=== PATIENT | male | born 1955 | race Caucasian/White ===

== ENCOUNTER → 2016-05-02 | Outpatient (CLI) | payer OTHER ==
[~2016-05-02] MED LIST: ASPI81TA28 PO; CRS10 PO; LOSA1TAB38 PO; QUIN20TA PO
--- NOTE | 2016-05-02 15:58 | DIAGNOSTIC IMAGING REPORT ---
AP PELVIS AND RIGHT HIP 2 VIEWS CLINICAL HISTORY: Right hip pain COMPARISON: None DISCUSSION: There are mild to moderate osteoarthritic changes involving the right hip. There is joint space narrowing and osteophyte formation. There are no erosive or destructive changes. There are no acute fractures. Mild osteophytic changes are also present within the left hip. IMPRESSION: 1. No acute fractures identified 2. Mild to moderate osteoarthritic changes involving the right hip. Electronically signed by: Anthony Page M.D. 05/02/2016 3:56 PM Dictated Date/Time: 05/02/2016 3:55 PM
== END | disposition home or self-care (01) ==
LOC: C.RDSM 14:08
PROVIDERS: ATTEND Physical Medicine & Rehabilitation Sports Medicine
DX: M16.11 Unilateral primary osteoarthritis, right hip (principal)

== ENCOUNTER → 2016-07-26 | Outpatient (CLI) | payer OTHER ==
[~2016-07-26] MED LIST changes: +QUIN1TAB4 PO; -QUIN20TA PO
[2016-07-26 09:36] LABS: BASO % 0.9 %; BASO ABS # 0.08 K/uL (0-0.2); COMPLETE YES; EOS % 5.7 %; IG% 0.3 %; LYMPH % 14.4 %; LYMPH ABS # 1.29 K/uL (1.2-3.4); MEAN CELL VOLUME 92.1 fL (80-100); MEAN CORPUSCULAR HEMOGLOBIN 31.3 pg (25-34); MEAN PLATELET VOLUME 11.2 fL (7.4-10.4); MONO % 12.2 %; NEUT % 66.5 %; PLATELET COUNT 162 K/uL (130-400); RED BLOOD COUNT 5.21 M/uL (4.7-6.1); WHITE BLOOD COUNT 8.95 K/uL (4.8-10.8)
[2016-07-26 09:50] LABS: ALT/SGPT 59 U/L (12-78); AST/SGOT 36 U/L (15-37); BLOOD UREA NITROGEN 35 mg/dl (7-18); BUN/CREATININE RATIO 19.4 (10-20); CARBON DIOXIDE 30 mmol/L (21-32); CHLORIDE 108 mmol/L (98-107); CHOLESTEROL 156 mg/dl (0-200); GLUCOSE 109 mg/dl (70-99); POTASSIUM 3.9 mmol/L (3.5-5.1); SODIUM 144 mmol/L (136-145); TRIGLYCERIDES 322 mg/dl (0-150); VERY LOW DENSITY LIPOPROT CALC 64 mg/dl
[2016-07-26 09:54] LABS: CHOLESTEROL/HDL RATIO 3.7; HDL CHOLESTEROL 42 mg/dl; LDL CHOLESTEROL CALCULATED 50 mg/dl
[2016-07-26 10:14] LABS: CALCIUM 9.7 mg/dl (8.5-10.1)
[2016-07-26 10:16] LABS: URINE PROTIEN/CREAT RATIO 1.5 (0-0.2); URINE TOTAL PROTEIN 169.7 mg/dl (0-11.9)
[2016-07-26 10:21] LABS: ESTIMATED AVERAGE GLUCOSE 117 mg/dl; HA1C FLAG Normal (Normal)
== END | disposition home or self-care (01) ==
LOC: C.LAB1850 08:42
PROVIDERS: ATTEND Internal Medicine
DX: R73.9 Hyperglycemia, unspecified (principal)

== ENCOUNTER → 2017-02-17 | Outpatient (CLI) | payer OTHER ==
[2017-02-17 09:25] LABS: BASO % 0.6 %; BASO ABS # 0.05 K/uL (0-0.2); COMPLETE YES; EOS % 6.1 %; HEMATOCRIT 47.2 % (42-52); IG% 0.4 %; LYMPH % 14.5 %; LYMPH ABS # 1.31 K/uL (1.2-3.4); MEAN CORPUSCULAR HEMOGLOBIN 31.4 pg (25-34); MEAN CORPUSCULAR HGB CONC 34.1 g/dl (32-36); MEAN PLATELET VOLUME 11.8 fL (7.4-10.4); MONO % 12.2 %; NEUT % 66.2 %; PLATELET COUNT 164 K/uL (130-400); RED BLOOD COUNT 5.13 M/uL (4.7-6.1); WHITE BLOOD COUNT 9.05 K/uL (4.8-10.8)
[2017-02-17 09:37] LABS: ALT/SGPT 70 U/L (12-78); AST/SGOT 38 U/L (15-37); BLOOD UREA NITROGEN 32 mg/dl (7-18); BUN/CREATININE RATIO 18.1 (10-20); CARBON DIOXIDE 28 mmol/L (21-32); CHLORIDE 105 mmol/L (98-107); CREATININE 1.76 mg/dl (0.60-1.40); GLUCOSE 114 mg/dl (70-99); POTASSIUM 3.6 mmol/L (3.5-5.1); SODIUM 139 mmol/L (136-145)
[2017-02-17 09:48] LABS: CHOLESTEROL 150 mg/dl (0-200); CHOLESTEROL/HDL RATIO 4.1; HDL CHOLESTEROL 37 mg/dl; LDL CHOLESTEROL CALCULATED 34 mg/dl; TRIGLYCERIDES 397 mg/dl (0-150); VERY LOW DENSITY LIPOPROT CALC 79 mg/dl
[2017-02-17 10:57] LABS: ESTIMATED AVERAGE GLUCOSE 120 mg/dl; HA1C FLAG Normal (Normal)
== END | disposition home or self-care (01) ==
LOC: C.LAB1850 07:24
PROVIDERS: ATTEND Internal Medicine
DX: E78.00 Pure hypercholesterolemia, unspecified (principal)

== ENCOUNTER → 2017-08-07 | Outpatient (CLI) | payer OTHER ==
[2017-08-07 09:45] LABS: BASO % 0.6 %; BASO ABS # 0.05 K/uL (0-0.2); EOS % 5.4 %; EOS ABS # 0.48 K/uL (0-0.5); HEMATOCRIT 48.3 % (42-52); HEMOGLOBIN 17.1 g/dL (14.0-18.0); IG# 0.04 K/uL (0.00-0.02); LYMPH % 14.8 %; LYMPH ABS # 1.31 K/uL (1.2-3.4); MEAN CELL VOLUME 87.5 fL (80-100); MEAN CORPUSCULAR HGB CONC 35.4 g/dl (32-36); MONO % 9.5 %; MONO ABS # 0.84 K/uL (0.11-0.59); NEUT % 69.2 %; NEUT ABS # 6.16 K/uL (1.4-6.5); PLATELET COUNT 181 K/uL (130-400); RED CELL DISTRIBUTION WIDTH CV 12.7 % (11.5-14.5); RED CELL DISTRIBUTION WIDTH SD 40.6 fL (36.4-46.3); WHITE BLOOD COUNT 8.88 K/uL (4.8-10.8)
[2017-08-07 10:27] LABS: ALT/SGPT 71 U/L (12-78); AST/SGOT 49 U/L (15-37); BLOOD UREA NITROGEN 50 mg/dl (7-18); CARBON DIOXIDE 28 mmol/L (21-32); CHOLESTEROL 167 mg/dl (0-200); CREATININE 1.96 mg/dl (0.60-1.40); GLUCOSE 110 mg/dl (70-99); LDL CHOLESTEROL CALCULATED 50 mg/dl; POTASSIUM 3.8 mmol/L (3.5-5.1); SODIUM 138 mmol/L (136-145)
== END | disposition home or self-care (01) ==
LOC: C.LAB1850 08:31
PROVIDERS: ATTEND Physician Assistant
DX: N18.9 Chronic kidney disease, unspecified (principal); I12.9 Hypertensive chronic kidney disease with stage 1 through stage 4 chronic kidney disease, or unspecified chronic kidney disease; E78.00 Pure hypercholesterolemia, unspecified; R73.9 Hyperglycemia, unspecified

== ENCOUNTER 2018-12-24 06:10 | Inpatient (IN) ==
--- NOTE | 2018-12-15 16:05 | PAT Medication Instructions ---
Medication Instructions Date of Service December 15, 2018 Home Medications agalsidase beta [Fabrazyme] 70 mg IV UD aspirin 81 mg PO QAM diltiazem HCl 180 mg PO QPM hydrochlorothiazide 25 mg PO QAM losartan 100 mg PO QAM multivitamin 1 tab PO Q OTHER DAY rosuvastatin 10 mg PO QPM ASK your prescriber and surgeon agalsidase beta [Fabrazyme] 70 mg IV UD DO NOT take the morning of surgery hydrochlorothiazide 25 mg PO QAM losartan 100 mg PO QAM multivitamin 1 tab PO Q OTHER DAY Take evening before surgery diltiazem HCl 180 mg PO QPM rosuvastatin 10 mg PO QPM Other Notes If you have any questions please call us at [phone] or [phone] or [phone] or [phone]
--- NOTE | 2018-12-16 10:26 | Anesthesiology Consultation ---
Date of Service December 16, 2018 Assessment & Plan (1) Encounter for pre-operative examination: Chart Review Chart Review: Pending: Refer to Additional Notes / Consult section (pending preop testing (labs, EKG, CXR)) and Patient seen in Pre Admission Testing Teaching & Discussion Pre-Anesthesia Teaching/Discussion Notes: Instructed NPO after midnight before surgery,except medications with 15 cc of water. Medication instructions prov ided according to the PAT guidelines. History Surgery Operation Date: 12/24/18 08:15 Proposed Procedures p Left Total Hip Arthroplasty - Kyaw Hoyos MD Height/Weight Height: 5 ft 6 in Weight: 84.9 kg Allergies Allergy/AdvReac Type Severity Reaction Status Date / Time No Known Allergies Allergy Unverified 12/11/18 08:09 Medications Home Medications Medication Instructions Recorded Confirmed Last Taken agalsidase beta [Fabrazyme] 70 mg IV UD 12/11/18 12/11/18 Unknown aspirin 81 mg PO QAM 12/11/18 12/11/18 Unknown diltiazem HCl 180 mg PO QPM 12/11/18 12/11/18 Unknown hydrochlorothiazide 25 mg PO QAM 12/11/18 12/11/18 Unknown losartan 100 mg PO QAM 12/11/18 12/11/18 Unknown multivitamin 1 tab PO Q OTHER DAY 12/11/18 12/11/18 Unknown rosuvastatin 10 mg PO QPM 12/11/18 12/11/18 Unknown Past Medical History Medical History Chronic renal insufficiency baseline creatinine 1.7-2.0 (monitored by nephrology); 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 Duncan) Hyperlipidemia Hypertension Left inguinal hernia Osteoarthritis Exercise / Class Metabolic Activity II 4-5 Yardwork/Stairs/Walk up hill Past Family History Family History Father Family history of diabetes mellitus Mother Family history of diabetes mellitus Past Surgical History Surgical History History of arthroscopic knee surgery History of colonoscopy History of left inguinal hernia repair History of right inguinal hernia repair History of tonsillectomy History of tooth extraction Hx of LASIK Past Anesthesia History No Hx of Anesthesia Complications and No Family Hx of Anesthesia Complications History of PONV No Hx of PONV and No Hx of Motion Sickness Social History Smoking Status: Never smoker Do You Dip or Chew Tobacco: No Hx Alcohol Use: No Hx Substance Use: No substance use type: does not use Review of Systems Patient denies chest pain, shortness of breath, dyspnea on exertion, reflux, cough, wheezing, palpitations. Physical Exam Vital Signs VITALS BP 108/73 P 62 TEMP 98.2 SP02 94%RA RESP 16 PHYSICAL Full neck and c-spine range of motion. Full TMJ range of motion. TMD 3 finger breaths Mallampati Score 1 Dentition: missing sides/molars Lungs: clear throughout to auscultation Cardiac: regular rate and rhythm, no murmurs noted Spine: normal Carotid arteries: negative bruit Extremities: no edema Testing Stress Test Date: 08/26/16 Type: exercise Negative exercise stress ECHO/EKG for ischemia at >100% MPHR. No chest pain. Rest ECHO EF 50%. Mild cLVH. No significant valvular disease. Mildly asynchronous contraction secondary to conduction delay. 12.8 METS.
[2018-12-16 12:16] LABS: Basophils # (auto) 0.06 K/uL (0-0.2); Basophils % (auto) 0.7 %; Eosinophils # (auto) 0.41 K/uL (0-0.5); Eosinophils % (auto) 4.5 %; Hematocrit (blood only) 45.6 % (42-52); Hemoglobin 15.8 g/dL (14.0-18.0); Immature Granulocytes # (auto) 0.03 K/uL (0.00-0.02); Immature Granulocytes % (auto) 0.3 %; Lymphocytes # (auto) 1.25 K/uL (1.2-3.4); Lymphocytes % (auto) 13.8 %; Mean Corpuscular Hemoglobin 30.8 pg (25-34); Mean Corpuscular Hgb Conc 34.6 g/dL (32-36); Mean Corpuscular Volume 88.9 fL (80-100); Mean Platelet Volume 10.9 fL (7.4-10.4); Monocytes # (auto) 1.05 K/uL (0.11-0.59); Monocytes % (auto) 11.6 %; Neutrophils # (auto) 6.24 K/uL (1.4-6.5); Neutrophils % (auto) 69.1 %; Platelet Count 197 K/uL (130-400); RDW Coefficient of Variation 12.6 % (11.5-14.5); RDW Standard Deviation 40.6 fL (36.4-46.3); Red Blood Count 5.13 M/uL (4.7-6.1); White Blood Count 9.04 K/uL (4.8-10.8)
[2018-12-16 12:26] LABS: Albumin Level 3.4 gm/dl (3.4-5.0); Calcium 9.4 mg/dl (8.5-10.1); Creatinine Clr Calc Pharmacy 38.1 ml/min; Est GFR (African American) 39.3; Est GFR (Non-African American) 33.9
[2018-12-16 12:29] LABS: Albumin Globulin Ratio 0.9 (0.9-2); Bilirubin,Total 0.7 mg/dl (0.2-1); Globulin 3.8 gm/dl (2.5-4.0); Total Protein 7.2 gm/dl (6.4-8.2)
[2018-12-16 12:32] LABS: INR 1.1 (0.9-1.1); Partial Thromboplastin Time 27.5 Seconds (21.0-31.0); Prothrombin Time 11.3 Seconds (9.0-12.0)
[2018-12-16 12:39] LABS: Appearance Urine Clear (Clear); Bacteria Urine Automated Negative (Negative); Bilirubin Urine Negative (Negative); Blood Urine Trace (Negative); Color Urine Yellow; Glucose Urine UA Negative (Negative); Ketones Urine Negative (Negative); Leukocyte Esterase Urine Negative (Negative); Nitrite Urine Negative (Negative); Protein Urine 3+ (Negative); RBC Urine Automated 0-4 /hpf (0-4); Specific Gravity Urine 1.019 (1.000-1.030); Urobilinogen Urine Negative (Negative)
[2018-12-16 12:40] LABS: Estimated Average Glucose 123 mg/dl; Hemoglobin A1C 5.9 % (4.5-5.6)
--- NOTE | 2018-12-16 14:30 | History & Physical Report ---
Date of Service December 16, 2018 Assessment & Plan (1) Primary osteoarthritis of left hip: DIAGNOSES: Left hip osteoarthritis. PROCEDURE: Left total hip arthroplasty. PLAN: The patient is scheduled to undergo this procedure with Dr. Kyaw Hoyos at [facility] as an inpatient on December 24, 2018. Risks and complications of the procedure such as infection, bleeding, pain, scarring, nerve and blood vessel damage, weakness, wound problems, stiffness, incomplete relief of symptoms, hardware failure, hardware loosening, wear, fracture, tendon or ligament injury, dislocation, leg length inequality, blood clots, embolism, heart attack, stroke, and were explained to the patient at his visit today by Dr. Hoyos. Informed consent to perform the procedure was obtained. We will need to obtain preoperative medical clearance from the patient's primary care provider. He states he will call and set up an appointment and taken to the clearance form with him and have them fax it back to our clinic. We will also obtain a preoperative CBC with differential, complete metabolic panel, PT, INR, urinalysis, urine culture, hemoglobin A1c, and a nasal swab for MRSA. The patient states that he will obtain necessary testing prior to his preanesthesia clearance appointment at the hospital later this morning. The patient was provided with an order for a walker that he will obtain from [employer] along with his hip kit. The patient was given information about lectures offered at [facility] in regards to hip replacement surgery. We went over the discharge planning packet and patient states that he will most likely have some in-home therapy for 1-2 weeks postoperatively. I also educated him about the use of antibiotics prior to any dental cleaning procedures after the surgery. I provided him with paperwork to obtain a handicap placard for her vehicle. I advised him that he will need to use an abduction pillow, went over the total hip precautions, discussed the specific details of the surgery with the patient and his , advised him that he will most likely not be able to drive for at least 4 weeks and possibly 6 weeks postoperatively. I will have him restart his aspirin twice daily for 30 days postoperatively for DVT prophylaxis. I instructed him to purchase [id number] Extra Strength Tylenol for relief of pain after the surgery. I advised him that I will provide him with prescriptions for narcotic pain medication as well as diclofenac sodium upon discharge from the hospital. Our plan is to discharge him on postoperative day 1 if he does well with physical therapy and occupational therapy. The patient will be scheduled for his 2-week postoperative follow-up visit with Dr. Hoyos on January 05 at 9:00 a.m. At that appointment, we will provide him with orders and rehab protocol for outpati ent physical therapy. The patient verbalized understanding of all information provided during today's visit, thanked us for the care he received, and states if he has questions or concerns that should arise prior to the procedure date, he will contact the clinic accordingly. History of Present Illness Chief Complaint: CHIEF COMPLAINT: Left hip pain. Primary Care Provider: Logan Duncan MD HISTORY OF PRESENT ILLNESS: This 63-year-old male presents to clinic today for his preoperative history and physical. The patient complains of a 1+ year history of left-sided hip pain that radiates into his groin. It originates in the lateral aspect of his hip. The patient states that pain is exacerbated when he drives. 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 The patient states that the pain is starting to cause problems with performing activities of daily life and that limited his range of motion in the left hip significantly. At this point, the patient denies any numbness or tingling or weakness in the left lower extremity. He has tried ibuprofen and some stretching exercises, which have failed to alleviate his symptoms. PAST MEDICAL HISTORY: Hypertension, hyperlipidemia, lower back pain, chronic kidney disease, and obesity. PAST SURGICAL HISTORY: Hernia repair x2, carpal tunnel release, and left knee arthroscopy. FAMILY HISTORY: Noncontributory. ALLERGIES: The patient has no known drug allergies. SOCIAL HISTORY: Completely unremarkable. CURRENT MEDICATIONS: Aspirin 81 mg tablet daily, Cozaar, unknown dosage daily, Crestor, unknown dosage daily, dilt-XR 180 mg/24 hour oral capsule extended release daily, Fabrazyme 5 mg intravenous injection 1 mg/kg IV every 2 weeks, hydrochlorothiazide unknown dosage daily, hydrocortisone 2.5% topical ointment mixed with ketoconazole apply 1-2 times a day Friday through Friday and tramadol 50 mg oral tablet 1 tab every 4 hours as needed for pain. Allergies Allergy/AdvReac Type Severity Reaction Status Date / Time No Known Allergies Allergy Unverified 12/11/18 08:09 Home Medications Home Medications Medication Instructions Recorded Confirmed Type agalsidase beta [Fabrazyme] 70 mg IV UD 12/11/18 12/11/18 History aspirin 81 mg PO QAM 12/11/18 12/11/18 History diltiazem HCl 180 mg PO QPM 12/11/18 12/11/18 History hydrochlorothiazide 25 mg PO QAM 12/11/18 12/11/18 History losartan 100 mg PO QAM 12/11/18 12/11/18 History multivitamin 1 tab PO Q OTHER DAY 12/11/18 12/11/18 History rosuvastatin 10 mg PO QPM 12/11/18 12/11/18 History Past Med/Surg History Medical History Chronic renal insufficiency baseline creatinine 1.7-2.0 (monitored by nephrology); 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 Duncan) Hyperlipidemia Hypertension Left inguinal hernia Osteoarthritis Surgical History History of arthroscopic knee surgery History of colonoscopy History of left inguinal hernia repair History of right inguinal hernia repair History of tonsillectomy History of tooth extraction Hx of LASIK Family History Father Family history of diabetes mellitus Mother Family history of diabetes mellitus Social History Preferred Language: Lao Communication Ability: Effective Court Abstractor Required: No Beliefs That Will Affect Care: None Current Living Situation: Spouse Other Information That Helps Us Care for You: No Feels Safe at Home: Yes Safety Concerns: Feels Safe At This Time Smoking Status: Never smoker Do You Dip or Chew Tobacco: No ; Second Hand Exposure: Yes (as a child) ; Hx Alcohol Use: No Hx Substance Use: No Review of Systems All systems reviewed & are unremarkable except as noted in HPI & below Physical Exam Physical Exam: PHYSICAL EXAMINATION: Skin: The patient's skin is normal in appearance. No open skin lesions or discharge. Eyes: Pupils are equal and reactive to light and accommodating. Extraocular movements are intact. Throat: Posterior pharynx is clear with absence of edema, erythema, or exudate. Cardiovascular exam: The patient has a regular rate and rhythm with no murmurs or gallops appreciated. Lungs: Auscultation of lung pollard reveals clear breath sounds throughout, no wheezing, rales, or rhonchi. Abdomen is obese, nondistended, nontender with normoactive bowel sounds. Extremities: Left hip - the patient is able to flex to approximately 85 degrees, internal rotation is restricted to negative 10 degrees, external rotation to 45 degrees. The patient has tenderness over the greater trochanter. He has referred pain to the groin with internal and external rotation. He also has some referred pain with active abduction, but no pain with adduction. GE test is 3-1/2 fists. Stinchfield test is positive. Otherwise, the patient is neurovascularly intact in left lower extremity. His calf is soft and supple, nontender to palpation. Neurological exam: Cranial nerves 2-12 are intact with no motor or sensory deficit. Psychological/general exam: The patient is alert and oriented x3 with proper grooming and hygiene. Results & Data Laboratory Results 12/16/18 12/16/18 12/16/18 Range/Units Unknown Unknown 10:44 WBC (4.8-10.8) K/uL RBC (4.7-6.1) M/uL Hgb (14.0-18.0) g/dL Hct (42-52) % MCV (80-100) fL MCH (25-34) pg MCHC (32-36) g/dL RDW Std Deviation (36.4-46.3) fL RDW Coeff of Carisa (11.5-14.5) % Plt Count (130-400) K/uL MPV (7.4-10.4) fL Immature Gran % (Auto) % Neut % (Auto) % Lymph % (Auto) % [place] % (Auto) % Eos % (Auto) % Baso % (Auto) % Immature Gran # (Auto) (0.00-0.02) K/uL Neut # (Auto) (1.4-6.5) K/uL Lymph # (Auto) (1.2-3.4) K/uL [place] # (Auto) (0.11-0.59) K/uL Eos # (Auto) (0-0.5) K/uL Baso # (Auto) (0-0.2) K/uL PT (9.0-12.0) Seconds INR (0.9-1.1) APTT (21.0-31.0) Seconds PTT Ratio Sodium (136-145) mmol/L Potassium (3.5-5.1) mmol/L Chloride (98-107) mmol/L Carbon Dioxide (21-32) mmol/L Anion Gap (3-11) BUN (7-18) mg/dl Creatinine (0.6-1.4) mg/dl Est Cr Clr Drug Dosing ml/min Est GFR ( Amer) Est GFR (Non-Af Amer) BUN/Creatinine Ratio (10-20) Glucose (70-99) mg/dl Estimat Average Glucose mg/dl Hemoglobin A1c (4.5-5.6) % Calcium (8.5-10.1) mg/dl Total Bilirubin (0.2-1) mg/dl AST (15-37) U/L ALT (12-78) U/L Alkaline Phosphatase (45-117) U/L Total Protein (6.4-8.2) gm/dl Albumin (3.4-5.0) gm/dl Globulin (2.5-4.0) gm/dl Albumin/Globulin Ratio (0.9-2) Urine Color Yellow Urine Appearance Clear (Clear) Urine pH 6.0 (4.5-7.5) Ur Specific [place] 1.019 (1.000-1.030) Urine Protein 3+ H (Negative) Urine Glucose (UA) Negative (Negative) Urine Ketones Negative (Negative) Urine Blood Trace H (Negative) Urine Nitrite Negative (Negative) Urine Bilirubin Negative (Negative) Urine Urobilinogen Negative (Negative) Ur Leukocyte Esterase Negative (Negative) Urine WBC (Auto) 1-5 (0-5) /hpf Urine RBC (Auto) 0-4 (0-4) /hpf U Hyaline Cast (Auto) 1-5 (0-5) /lpf U Epithel Cells (Auto) 5-10 H (0-5) /lpf Urine Bacteria (Auto) Negative (Negative) Nasal Screen MRSA (PCR) Negative (Negative) Blood Type A Positive Antibody Screen NEGATIVE 12/16/18 12/16/18 12/16/18 Range/Units 10:44 10:44 10:44 WBC (4.8-10.8) K/uL RBC (4.7-6.1) M/uL Hgb (14.0-18.0) g/dL Hct (42-52) % MCV (80-100) fL MCH (25-34) pg MCHC (32-36) g/dL RDW Std Deviation (36.4-46.3) fL RDW Coeff of Carisa (11.5-14.5) % Plt Count (130-400) K/uL MPV (7.4-10.4) fL Immature Gran % (Auto) % Neut % (Auto) % Lymph % (Auto) % [place] % (Auto) % Eos % (Auto) % Baso % (Auto) % Immature Gran # (Auto) (0.00-0.02) K/uL Neut # (Auto) (1.4-6.5) K/uL Lymph # (Auto) (1.2-3.4) K/uL [place] # (Auto) (0.11-0.59) K/uL Eos # (Auto) (0-0.5) K/uL Baso # (Auto) (0-0.2) K/uL PT 11.3 (9.0-12.0) Seconds INR 1.1 (0.9-1.1) APTT 27.5 (21.0-31.0) Seconds PTT Ratio 1.0 Sodium 139 (136-145) mmol/L Potassium 3.0 L (3.5-5.1) mmol/L Chloride 102 (98-107) mmol/L Carbon Dioxide 30 (21-32) mmol/L Anion Gap 7.0 (3-11) BUN 29 H (7-18) mg/dl Creatinine 2.03 H (0.6-1.4) mg/dl Est Cr Clr Drug Dosing 38.1 ml/min Est GFR ( Amer) 39.3 Est GFR (Non-Af Amer) 33.9 BUN/Creatinine Ratio 14.0 (10-20) Glucose 107 H (70-99) mg/dl Estimat Average Glucose 123 mg/dl Hemoglobin A1c 5.9 H (4.5-5.6) % Calcium 9.4 (8.5-10.1) mg/dl Total Bilirubin 0.7 (0.2-1) mg/dl AST 48 H (15-37) U/L ALT 62 (12-78) U/L Alkaline Phosphatase 53 (45-117) U/L Total Protein 7.2 (6.4-8.2) gm/dl Albumin 3.4 (3.4-5.0) gm/dl Globulin 3.8 (2.5-4.0) gm/dl Albumin/Globulin Ratio 0.9 (0.9-2) Urine Color Urine Appearance (Clear) Urine pH (4.5-7.5) Ur Specific [place] (1.000-1.030) Urine Protein (Negative) Urine Glucose (UA) (Negative) Urine Ketones (Negative) Urine Blood (Negative) Urine Nitrite (Negative) Urine Bilirubin (Negative) Urine Urobilinogen (Negative) Ur Leukocyte Esterase (Negative) Urine WBC (Auto) (0-5) /hpf Urine RBC (Auto) (0-4) /hpf U Hyaline Cast (Auto) (0-5) /lpf U Epithel Cells (Auto) (0-5) /lpf Urine Bacteria (Auto) (Negative) Nasal Screen MRSA (PCR) (Negative) Blood Type Antibody Screen 12/16/18 Range/Units 10:44 WBC 9.04 (4.8-10.8) K/uL RBC 5.13 (4.7-6.1) M/uL Hgb 15.8 (14.0-18.0) g/dL Hct 45.6 (42-52) % MCV 88.9 (80-100) fL MCH 30.8 (25-34) pg MCHC 34.6 (32-36) g/dL RDW Std Deviation 40.6 (36.4-46.3) fL RDW Coeff of Carisa 12.6 (11.5-14.5) % Plt Count 197 (130-400) K/uL MPV 10.9 H (7.4-10.4) fL Immature Gran % (Auto) 0.3 % Neut % (Auto) 69.1 % Lymph % (Auto) 13.8 % [place] % (Auto) 11.6 % Eos % (Auto) 4.5 % Baso % (Auto) 0.7 % Immature Gran # (Auto) 0.03 H (0.00-0.02) K/uL Neut # (Auto) 6.24 (1.4-6.5) K/uL Lymph # (Auto) 1.25 (1.2-3.4) K/uL [place] # (Auto) 1.05 H (0.11-0.59) K/uL Eos # (Auto) 0.41 (0-0.5) K/uL Baso # (Auto) 0.06 (0-0.2) K/uL PT (9.0-12.0) Seconds INR (0.9-1.1) APTT (21.0-31.0) Seconds PTT Ratio Sodium (136-145) mmol/L Potassium (3.5-5.1) mmol/L Chloride (98-107) mmol/L Carbon Dioxide (21-32) mmol/L Anion Gap (3-11) BUN (7-18) mg/dl Creatinine (0.6-1.4) mg/dl Est Cr Clr Drug Dosing ml/min Est GFR ( Amer) Est GFR (Non-Af Amer) BUN/Creatinine Ratio (10-20) Glucose (70-99) mg/dl Estimat Average Glucose mg/dl Hemoglobin A1c (4.5-5.6) % Calcium (8.5-10.1) mg/dl Total Bilirubin (0.2-1) mg/dl AST (15-37) U/L ALT (12-78) U/L Alkaline Phosphatase (45-117) U/L Total Protein (6.4-8.2) gm/dl Albumin (3.4-5.0) gm/dl Globulin (2.5-4.0) gm/dl Albumin/Globulin Ratio (0.9-2) Urine Color Urine Appearance (Clear) Urine pH (4.5-7.5) Ur Specific [place] (1.000-1.030) Urine Protein (Negative) Urine Glucose (UA) (Negative) Urine Ketones (Negative) Urine Blood (Negative) Urine Nitrite (Negative) Urine Bilirubin (Negative) Urine Urobilinogen (Negative) Ur Leukocyte Esterase (Negative) Urine WBC (Auto) (0-5) /hpf Urine RBC (Auto) (0-4) /hpf U Hyaline Cast (Auto) (0-5) /lpf U Epithel Cells (Auto) (0-5) /lpf Urine Bacteria (Auto) (Negative) Nasal Screen MRSA (PCR) (Negative) Blood Type Antibody Screen
[~2018-12-24 06:10] MED LIST changes: +ACETAMINOPHEN 500 MG TAB PO SCH; -ASPI81TA28 PO; +CEFAZOLIN 2000MG 2,000 MG/15 ML SYR IV SCH; -CRS10 PO; +CeleBREX 200 MG CAP PO SCH; +FAMOTIDINE 20 MG TAB PO SCH; -LOSA1TAB38 PO; +LR 500ML BOLUS, THEN 15ML/HR IV SCH; +LR 60ML/HR IV SCH; +METOCLOPRAMIDE HCL 10 MG TABLET PO SCH; -QUIN1TAB4 PO; +ROPIVACAINE 0.5% HCL/PF 150 MG, BUPIVACAINE 0.5% MPF 30 ML, EPINEPHrine 0.15 MG, Ketoro... INFIL SCH; +ROPIVACAINE 0.5% HCL/PF 150 MG, BUPIVACAINE 0.5% MPF 30 ML, EPINEPHrine 30MG/30ML (OR U... INSTIL SCH; +SCOPOLAMINE 1.5 MG TDSY TD SCH; +TRAMADOL HCL 50 MG TABLET PO SCH; +TRANEXAMIC ACID 1,000 MG **IV Pre-op IV SCH; +dexAMETHasone 4 MG TAB PO SCH
[2018-12-24] MEDS ORDERED: BUPIVACAINE 0.5 % 5 MG/1 ML PF 10ML VIAL ONE (06:20)
[2018-12-24] MEDS ORDERED: TRANEXAMIC ACID 1,000 MG **IV Intra-op IV SCH (06:30)
[2018-12-24] MEDS ORDERED: ORTHO JOINT ANESTHETIC ONE (07:54)
[2018-12-24] MEDS ORDERED: PROPOFOL IV EMULSION 10 MG/ML 20 ML VIAL IV ONE ×2 (08:02→09:05)
[2018-12-24] MEDS ORDERED: fentaNYL citrate 100 MCG/2 ML VIAL ONE (08:02)
--- NOTE | 2018-12-24 08:02 | History & Physical Bridge Note ---
Date of Service December 24, 2018 History & Physical Bridge Note I have examined the patient, reviewed the History & Physical and in the interval since the performance of the History & Physical I have noted the following changes of clinical significance: Patient's potassium level was low at 3.0 at pre-op, has been getting supplemented over the past week. Was rechecked yesterday at [place]. Patient reports he was told it was "OK" but we don't have that lab result available to us. Stat K ordered by Dr. Spangler. Will proceed with surgery if cleared by anesthesiologist. Otherwise, no changes noted
[2018-12-24] MEDS ORDERED: MIDAZOLAM HCL 1 MG/ML 2ML VIAL ONE (08:03)
--- NOTE | 2018-12-24 09:43 | Post Operative Brief Note ---
Immediate Post Op Note v1 Date of Surgery December 24, 2018 Pre & Post Diagnosis Operation Date: 12/24/18 08:15 Pre-Op Diagnosis: Left Hip Osteoarthritis Post-Op Diagnosis: Left Hip Osteoarthritis Procedure Operation Date: 12/24/18 08:15 Actual Procedures p Left Total Hip Arthroplasty(Left) - Kyaw Hoyos MD Surgeon Kyaw Hoyos MD Casting And Curing Operator ARCELIA Espinosa PA-C and Gildardo Solomon MS-3 Estimated Blood Loss 200 Findings Consistent with Post-Op Diagnosis Fluids 800 Anesthesia Type Spinal MAC Complications none Disposition Accompanied Patient To Recovery: No Disposition: Recovery Room
[2018-12-24] MEDS ORDERED: ATROPINE SULFATE 0.1 MG/ML 10ML SYR IV PRN (09:49)
[2018-12-24] MEDS ORDERED: ePHEDrine sulfate 50 MG/ML AMP IV PRN (09:49)
--- NOTE | 2018-12-24 09:53 | Operative Report ---
Post Operative Report Pre & Post Diagnosis Operation Date: 12/24/18 08:15 Pre-Op Diagnosis: Left Hip Osteoarthritis Post-Op Diagnosis: Left Hip Osteoarthritis Procedure Operation Date: 12/24/18 08:15 Actual Procedures p Left Total Hip Arthroplasty(Left) - Kyaw Hoyos MD Surgeon Kyaw Hoyos MD Tear Down Matcher ARCELIA Espinosa PA-C and Gildardo Solomon MS-3 Estimated Blood Loss 200 Findings Consistent with Post-Op Diagnosis Specimens left femoral head Complications none Disposition Accompanied Patient To Recovery: Yes Disposition: Recovery Room Description of Procedure I was present during the entire case assisting with wound closure and dressing application. Please see Dr. Hoyos procedure note for specifics of the case. I attest to the content of the Intraoperative Record and any orders documented therein. Any exceptions are noted below.
[2018-12-24] MEDS ORDERED: ONDANSETRON INJ 2 MG/ML 2 ML VIAL IV PRN (09:54)
[2018-12-24] MEDS ORDERED: ALUMINUM/MAGNESIUM SUSP 30 ML UDC PO PRN (09:54)
[2018-12-24] MEDS ORDERED: MAGNESIUM HYDROXIDE SUSP 30 ML UDC PO PRN (09:54)
[2018-12-24] MEDS ORDERED: bisacodyL 10 MG SUPP PR PRN (09:54)
[2018-12-24] MEDS ORDERED: OXYCODONE HCL IR 5 MG TAB (IMMEDIATE RELEASE) PO PRN (09:54)
[2018-12-24] MEDS ORDERED: METOCLOPRAMIDE HCL INJ 5 MG/ML 2 ML VIAL IV PRN (09:54)
[2018-12-24] MEDS ORDERED: TAMSULOSIN HCL 0.4 MG CAP PO PRN (09:54)
[2018-12-24] MEDS ORDERED: NALOXONE HCL 0.4 MG/1 ML VIAL/CARP IV PRN (09:54)
[2018-12-24] MEDS ORDERED: HYDROmorphone INJ 0.5 MG/0.5 ML SYR IV PRN (09:54)
[2018-12-24] MEDS ORDERED: DiphenhydrAMINE HCL 50 MG/ML VIAL IV PRN (09:54)
[2018-12-24] MEDS ORDERED: NITROGLYCERIN SL 0.4 MG/TAB TAB SL PRN (09:57)
[2018-12-24] MEDS ORDERED: EPINEPHRINE ADULT AUTO-INJECT 0.3 MG SYR IM PRN (09:57)
[2018-12-24] MEDS ORDERED: MULTIVITAMIN TAB PO SCH (10:00)
[2018-12-24] MEDS ORDERED: SODIUM CHLORIDE 0.9% 1000ML 1,000 ML IV SCH (10:00)
--- NOTE | 2018-12-24 10:12 | Operative Report ---
DATE OF OPERATION: 12/24/2018 PREOPERATIVE DIAGNOSIS: Left hip osteoarthritis. POSTOPERATIVE DIAGNOSIS: Left hip osteoarthritis. OPERATIONS PERFORMED: Left total hip arthroplasty. SURGEON: Kyaw Hoyos MD WOOD HEEL FINISHER: Carmen Espinosa PA-C and Gildardo Solomon MS3. ESTIMATED BLOOD LOSS: 200 mL. INTRAVENOUS FLUIDS: 800 mL crystalloid. SPECIMENS: Femoral head. COMPLICATIONS: None. IMPLANTS: 1. DePuy Kipling Gription acetabular shell sector cup 56 mm outer diameter. 2. Kipling cancellous bone screw 6.5 mm x 35 mm. 3. Kipling Ultrex polyethylene liner for a 36-mm femoral head. 4. DePuy [place] 4 high offset femoral stem. 5. Biolox delta ceramic femoral head 36 mm diameter with a +1.5 mm offset. INDICATIONS: Mr. Conrad is a 63-year-old male with left hip osteoarthritis that has been refractory to conservative management. X-rays show bone on bone arthritis. I had a long discussion with him about the risks and benefits of surgery, alternatives to surgery and expected outcomes. After reviewing all these, he elected to proceed with surgery. All questions were answered. Informed consent was signed. OPERATIVE FINDINGS: Degenerative osteoarthritis of the left hip. Ceramic on polyethylene bearing surface was implanted. Implants were through posterior approach. DESCRIPTION OF THE OPERATION: The patient was identified in the preoperative holding area where his surgical site was marked. He was brought back to main operating room, where he was placed on the operating room table and moved in the lateral decubitus position. Axillary roll was placed. All bony prominences were padded. Perioperative antibiotics were administered. Tranexamic acid was administered. He was prepped and draped in normal sterile fashion. Prior to incision, a multidisciplinary timeout was called. All in the room were in agreement. We began by making a 14 cm incision for a posterior approach to the hip. We dissected down through to the level of fascia. Fascia was incised in line with the incision. Charnley bow was placed. Trochanteric bursa was excised. The piriformis and short external rotators were dissected off the posterior aspect of the hip capsule. A box cut was made in the hip capsule. The femoral head was dislocated. Our neck cut was made at 10 mm, which was our preoperative template. The acetabulum was then exposed. The labrum was sharply excised. The contents of the cotyloid fossa were removed with electrocautery. We then reamed his acetabulum up to a size 56 mm cup. This gave us good bleeding bone. Acetabulum was irrigated out and then the 56 mm cup was impacted down into position with 45 degrees of lateral opening and 25 degrees of anteversion. A single cancellous bone screw was placed measuring 35 mm. The polyethylene liner for 36 mm femoral head was then placed inside of the cup and impacted into position. The locking mechanism was checked to ensure that had engaged, which it had. Next, a femoral neck was exposed. Lateral neck was removed with a [email or web address] cutter. The intramedullary guide was used followed by the lateralizing reamer. We then reamed him up to a size 4 [place] stem which was our preoperative template. He was then broached all the way up to a size 4 stem. The size 4 broach had excellent torsional stability and sat at the level of the femoral neck cut. We then templated him with a high offset neck and a +1.5 mm head. The hip was atraumatically reduced. We checked his shuck tests, leg lengths, external rotation and extension in sleeper position where he was all stable. At 90 degrees of hip flexion, he could be internally rotated 45 degrees before leaving out of the cup. I was very happy with the stability exam. Therefore, the real size 4 high offset femoral stem was opened up. The broach was removed. The femoral canal was irrigated out and dried. The real size 4 stem was impacted down into position. It sat less than a millimeter more proud than the broach. Therefore, the size 1.5 mm offset ceramic femoral head was opened up and gently impacted onto the trunnion. The hip was then atraumatically reduced. At this point, the wound was irrigated with sterile Betadine solution. The periarticular injection was then placed. The short external rotators and piriformis as well as the capsule repaired to the trochanter through bone tunnels using #2 Vicryl sutures. The fascia was run with a looped #1 PDS. Deep subcutaneous layer was closed with a running #1 PDS. The dermal layer was closed with a running 2-0 Vicryl followed by a ZipLine for the skin. Silverlon dressing was placed followed by compressive dressing. The patient was rolled supine. His leg lengths were checked which were symmetric. He was placed into an abduction pillow. Sedation was lifted and he was transferred to recovery room in stable condition. POSTOPERATIVE COURSE: The patient will be admitted to the hospital for pain control and monitoring. He will be on posterior hip precautions. He can weightbear as tolerated. Aspirin for DVT prophylaxis. I attest to the content of the Intraoperative Record and any orders documented therein. Any exception s are noted below.
--- NOTE | 2018-12-24 10:32 | XRay Report ---
AP PELVIS, CROSSTABLE LATERAL LEFT HIP History: Left total hip arthroplasty. Degenerative arthritis. Postop. FINDINGS: The patient is status post a left total hip arthroplasty. The hardware is intact. No fractu re or dislocation. IMPRESSION: Left total hip arthroplasty. No evidence for hardware complication. Electronically signed by: Ramone Arreola M.D. 12/24/2018 10:30 AM
[2018-12-24] MEDS: KETOROLAC TROMETHAMINE 15 MG/ML VIAL IV SCH ×3 (11:28→20:23)
--- NOTE | 2018-12-24 11:35 | Anesthesiology Progress Note ---
Date of Service December 24, 2018 Anesthesia Post Procedure Vital Signs Vital Signs: Temp Pulse Pulse Resp BP Pulse Ox 12/24/18 11:31 54 L 18 117/79 97 12/24/18 11:00 36.5 C 52 L 16 107/69 96 12/24/18 10:50 37.0 C 57 L 18 117/71 95 12/24/18 10:40 57 L 18 115/79 96 12/24/18 10:30 56 L 16 115/72 96 12/24/18 10:20 57 L 14 131/93 96 12/24/18 10:10 62 22 124/74 97 12/24/18 10:00 65 16 100/75 96 12/24/18 09:52 36.7 C 61 16 92/66 L 96 12/24/18 07:42 36.7 C 63 18 135/95 94 Pain Intensity Left Hip: Pain Intensity: 0 Transfer of Care Handoff Completed per policy Notes Mental Status: alert / awake / arousable Patient Amnestic to Procedure: Yes Nausea / Vomiting: adequately controlled Pain: adequately controlled Airway Patency, RR, SpO2: stable & adequate BP & HR: stable & adequate Hydration State: stable & adequate Neuraxial Anesthesia: was administered and sensory block is resolving Anesthetic Complications: no major complications apparent
[2018-12-24] MEDS: ACETAMINOPHEN 500 MG TAB PO SCH ×2 (13:18→20:20)
[2018-12-24] MEDS ORDERED: INFLUENZA VIRUS QUAD VACCINE 0.5 ML SYR IM ONE (14:00)
[2018-12-24] MEDS ORDERED: INFLUENZA ADMINISTRATION CHARGE ONE (14:00)
[2018-12-24] MEDS ORDERED: TRANEXAMIC ACID 1,000 MG in 0.9 % SODIUM CHLORIDE 100 ML IV SCH (15:54)
[2018-12-24] MEDS: CHECK SCOPOLAMINE PATCH PLACEMENT SCH (15:55)
[2018-12-24] MEDS: CEFAZOLIN 2000MG 2,000 MG/15 ML SYR IV SCH ×2 (15:57→23:59)
[2018-12-24] MEDS: ASPIRIN 81 MG ECTAB PO SCH (20:20)
[2018-12-24] MEDS: DOCUSATE SODIUM 100 MG CAP PO SCH (20:20)
[2018-12-24] MEDS ORDERED: ASPIRIN 81 MG ECTAB PO SCH (21:00)
[2018-12-24] MEDS ORDERED: dilTIAZem ER 180 MG CAPCR PO SCH (21:00)
[2018-12-24] MEDS ORDERED: SENNA 8.6 MG TAB PO SCH (21:00)
[2018-12-24] MEDS ORDERED: ROSUVASTATIN CALCIUM 10 MG TAB PO SCH (21:00)
[2018-12-25] MEDS: CHECK SCOPOLAMINE PATCH PLACEMENT SCH
[2018-12-25 00:10] VITALS: TEMP 97.9
[2018-12-25] MEDS: ACETAMINOPHEN 500 MG TAB PO SCH (05:15)
[2018-12-25] MEDS: KETOROLAC TROMETHAMINE 15 MG/ML VIAL IV SCH (05:15)
[2018-12-25 05:58] LABS: Basophils # (auto) 0.01 K/uL (0-0.2); Basophils % (auto) 0.1 %; Hematocrit (blood only) 37.3 % (42-52); Hemoglobin 12.8 g/dL (14.0-18.0); Immature Granulocytes # (auto) 0.04 K/uL (0.00-0.02); Immature Granulocytes % (auto) 0.2 %; Lymphocytes # (auto) 0.62 K/uL (1.2-3.4); Lymphocytes % (auto) 3.2 %; Mean Corpuscular Hemoglobin 30.5 pg (25-34); Mean Corpuscular Hgb Conc 34.3 g/dL (32-36); Mean Corpuscular Volume 88.8 fL (80-100); Mean Platelet Volume 10.9 fL (7.4-10.4); Monocytes # (auto) 1.21 K/uL (0.11-0.59); Monocytes % (auto) 6.2 %; Neutrophils # (auto) 17.56 K/uL (1.4-6.5); Neutrophils % (auto) 90.3 %; Platelet Count 167 K/uL (130-400); RDW Coefficient of Variation 12.4 % (11.5-14.5); RDW Standard Deviation 39.5 fL (36.4-46.3); White Blood Count 19.44 K/uL (4.8-10.8)
[2018-12-25 06:34] LABS: BUN Creatinine Ratio 15.7 (10-20); Creatinine Clr Calc Pharmacy 28.6 ml/min; Est GFR (African American) 27.6; Est GFR (Non-African American) 23.8; Potassium 3.2 mmol/L (3.5-5.1)
--- NOTE | 2018-12-25 07:44 | Anesthesiology Progress Note ---
Date of Service December 25, 2018 Anesthesia Post Procedure Vital Signs Vital Signs: Temp Pulse Pulse Pulse Resp BP BP 12/25/18 03:09 36.6 C 73 16 132/75 12/24/18 23:32 36.6 C 68 16 121/65 12/24/18 19:55 36.3 C L 75 16 119/67 12/24/18 15:22 36.5 C 67 16 110/67 12/24/18 14:00 65 16 116/75 12/24/18 13:05 66 16 113/73 12/24/18 11:56 56 L 16 124/80 12/24/18 11:31 54 L 18 117/79 12/24/18 11:00 36.5 C 52 L 16 107/69 12/24/18 10:50 37.0 C 57 L 18 117/71 12/24/18 10:40 57 L 18 115/79 12/24/18 10:30 56 L 16 115/72 12/24/18 10:20 57 L 14 131/93 12/24/18 10:10 62 22 124/74 12/24/18 10:00 65 16 100/75 12/24/18 09:52 36.7 C 61 16 92/66 L Pulse Ox 12/25/18 03:09 91 12/24/18 23:32 91 12/24/18 19:55 91 12/24/18 15:22 96 12/24/18 14:00 12/24/18 13:05 96 12/24/18 11:56 97 12/24/18 11:31 97 12/24/18 11:00 96 12/24/18 10:50 95 12/24/18 10:40 96 12/24/18 10:30 96 12/24/18 10:20 96 12/24/18 10:10 97 12/24/18 10:00 96 12/24/18 09:52 96 Pain Intensity Left Hip: Pain Intensity: 0 Notes Mental Status: alert / awake / arousable and participated in evaluation Patient Amnestic to Procedure: Yes Nausea / Vomiting: adequately controlled Pain: adequately controlled Airway Patency, RR, SpO2: stable & adequate BP & HR: stable & adequate Hydration State: stable & adequate Anesthetic Complications: Pt Satisfied with anesthetic care
[2018-12-25] MEDS ORDERED: dexAMETHasone 4 MG TAB PO SCH (08:00)
--- NOTE | 2018-12-25 08:03 | Orthopedic Progress Note ---
Date of Service December 25, 2018 Assessment & Plan (1) Status post left hip replacement: PT/OT this morning. Discharge home if passes PT. Follow-up 2 weeks Subjective Did well overnight. No cp/sob. Pain well controlled. Physical Exam Physical Exam: Dressing c/d/i. Distally NVI. Results & Data Vital Signs (Past 12 Hours) Vital Signs Temp Pulse Resp BP BP Pulse Ox 12/25/18 03:09 36.6 C 73 16 132/75 91 12/24/18 23:32 36.6 C 68 16 121/65 91
[2018-12-25 08:12] VITALS: PULSE 62; O2SAT 93
[2018-12-25] MEDS: ASPIRIN 81 MG ECTAB PO SCH (08:27)
[2018-12-25] MEDS: DOCUSATE SODIUM 100 MG CAP PO SCH (08:28)
[2018-12-25 08:59] VITALS: BP 121/65
[2018-12-25] MEDS ORDERED: POTASSIUM CHLORIDE 10 MEQ TABCR PO SCH (09:00)
[2018-12-25] MEDS ORDERED: LOSARTAN POTASSIUM 50 MG TAB PO SCH (09:00)
[2018-12-25] MEDS ORDERED: hydroCHLOROthiazide 25 MG TAB PO SCH (09:00)
[2018-12-25] MEDS ORDERED: MULTIVITAMIN TAB PO SCH (09:00)
[2018-12-25] MEDS ORDERED: CeleBREX 200 MG CAP PO SCH (21:00)
--- NOTE | 2018-12-28 07:42 | Discharge Summary ---
Date of Service December 28, 2018 Admission HPI Per Admitting Provider HISTORY OF PRESENT ILLNESS: This 63-year-old male presents to clinic today for his preoperative history and physical. The patient complains of a 1+ year history of left-sided hip pain that radiates into his groin. It originates in the lateral aspect of his hip. The patient states that pain is exacerbated when he drives. 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 The patient states that the pain is starting to cause problems with performing activities of daily life and that limited his range of motion in the left hip significantly. At this point, the patient denies any numbness or tingling or weakness in the left lower extremity. He has tried ibuprofen and some stretching exercises, which have failed to alleviate his symptoms. PAST MEDICAL HISTORY: Hypertension, hyperlipidemia, lower back pain, chronic kidney disease, and obesity. PAST SURGICAL HISTORY: Hernia repair x2, carpal tunnel release, and left knee arthroscopy. FAMILY HISTORY: Noncontributory. ALLERGIES: The patient has no known drug allergies. SOCIAL HISTORY: Completely unremarkable. CURRENT MEDICATIONS: Aspirin 81 mg tablet daily, Cozaar, unknown dosage daily, Crestor, unknown dosage daily, dilt-XR 180 mg/24 hour oral capsule extended release daily, Fabrazyme 5 mg intravenous injection 1 mg/kg IV every 2 weeks, hydrochlorothiazide unknown dosage daily, hydrocortisone 2.5% topical ointment mixed with ketoconazole apply 1-2 times a day Friday through Friday and tramadol 50 mg oral tablet 1 tab every 4 hours as needed for pain. Admission Exam Per Admitting Provider PHYSICAL EXAMINATION: Skin: The patient's skin is normal in appearance. No open skin lesions or discharge. Eyes: Pupils are equal and reactive to light and accommodating. Extraocular movements are intact. Throat: Posterior pharynx is clear with absence of edema, erythema, or exudate. Cardiovascular exam: The patient has a regular rate and rhythm with no murmurs or gallops appreciated. Lungs: Auscultation of lung pollard reveals clear breath sounds throughout, no wheezing, rales, or rhonchi. Abdomen is obese, nondistended, nontender with normoactive bowel sounds. Extremities: Left hip - the patient is able to flex to approximately 85 degrees, internal rotation is restricted to negative 10 degrees, external rotation to 45 degrees. The patient has tenderness over the greater trochanter. He has referred pain to the groin with internal and external rotation. He also has some referred pain with active abduction, but no pain with adduction. GE test is 3-1/2 fists. Stinchfield test is positive. Otherwise, the patient is neurovascularly intact in left lower extremity. His calf is soft and supple, nontender to palpation. Neurological exam: Cranial nerves 2-12 are intact with no motor or sensory deficit. Psychological/general exam: The patient is alert and oriented x3 with proper grooming and hygiene. Principal Diagnosis Left hip osteoarthritis Discharge Exam Dressing c/d/i. Distally NVI. Discharge Data Allergies Allergy/AdvReac Type Severity Reaction Status Date / Time No Known Allergies Allergy Verified 12/24/18 07:01 Consultations 12/25/18 08:00 Consult Case Management - Discharge Planning Routine Procedures Performed Operation Date: 12/24/18 08:15 Actual Procedures p Left Total Hip Arthroplasty(Left) - Kyaw Hoyos MD Hospital Course (1) Status post left hip replacement: Patient did well overnight. Pain was well controlled with PO pain meds. Ready for discharge after PT/OT with in home rehab services. PT/OT this morning. Discharge home if passes PT. Follow-up 2 weeks Total Time Total Time Spent Total Time Spent (In Minutes): 20 mins Total Time Includes: Examination of the Patient, Discharge Planning and Medication Reconciliation Discharge Plan Discharge Items Patient Disposition: Home - Home Health Services Reason For Visit: Left Hip Osteoarthritis Discharge Diagnosis: Left hip osteoarthritis Activity: As commented below Lifting: None Bathing: Keep incision dry Bathing Comment: May shower tomorrow Sexual Activity: Wait until after follow-up appointment Exercise/Sports: Wait until after follow-up appointment Weightbearing Comment: as tolerated with walker assistance Non-emergency contact: Primary Care Provider Call non-emergency contact if: you have any medication questions, your pain is not controlled, your temperature is above 101.5, your wound has increased redness and your wound has increased drainage Follow-up/Referrals: Logan Duncan MD [Primary Care Provider] - Diet: Regular Addtl Attending Provider Instructions: Post-operative Instructions Dear Patient and Family/Friends, Before you are discharged from the hospital, it is important to know what to expect when you get home after surgery. To that end, we have created this sheet of discharge instructions which covers many commonly asked questions. Make sure you go through this sheet in its entirety with your nurse before you are disch arged. Please note that we will go over the specifics of your surgery and recovery when you return for your first post-operative visit. Sincerely, Dr. Hoyos Medications 1. Oxycodone 5mg: take 1-2 tabs po q 4-6 hrs as needed for pain control 2. Diclofenac Sodium 75 mg: take 1 tab twice daily with food for 30 days post operatively 3. Extra Strength Tylenol 500 mg: Take 2 tabs with every other dose of the Oxycodone until you have Finished the Oxy; then take 2 tabs every 6-8 hrs as needed for pain control. 4. Aspirin 81 mg: increase you Aspirin to twice daily for first 30 days post operatively to prevent blood Clots. Pain Expect to be in a fair amount of pain after surgery. Remember, our goal is not to eliminate your pain, but to make it tolerable. It is a good idea to stay ahead of your pain by taking the medications you were prescribed once you get home. Typically, the pain starts improving 3-7 days after surgery. You should start weaning off the narcotic pain medication (oxycodone, hydrocodone, hydromorphone, morphine) as soon as your pain improves. Please call our office if your pain is not adequately controlled. Ice Ice your operative site at least 5 times a day for 15-30 minutes at a time. Make sure you have a thin cloth between the ice or cooling unit and your skin to prevent keith bite. This is especially important if you received a nerve block. Continue icing your operative site for the first 5-7 days after surgery, then as needed. Diet/Nausea/Vomiting Start by drinking clear liquids and eating crackers. If you can tolerate this, then you may resume your normal diet. If you feel nauseated or vomit, take Zofran/ondansetron (if prescribed). Please call our office if you have intractable nausea or vomiting, or, if after hours, you may go to the Emergency Room for help. Constipation Constipation is a common side effect of narcotic pain medication. If you have not had a bowel movement within 2 days after surgery, we recommend purchasing an over the counter laxative such as Milk of Magnesia, Dulcolax, or Miralax from a local pharmacy, and taking it as instructed. Call our clinic if any questions. Nerve block The anesthesia team sometimes places a nerve block to help with post-operative pain control. This results in significant numbness and inability to move the extremity. The nerve block usually wears off in 8-12 hours, but sometimes can last up to 24 hours. Please call our office if you are still unable to move your extremity after 24 hours, unless you received a pain pump to take home. Nerve blocks typically wear off quickly, so start taking pain medication as soon as you start feeling soreness near your surgical site. Weight bearing and Range of Motion. Do not bear any weight through your operative extremity immediately after surgery. If you had upper extremity surgery, do not lift anything with that arm. If you are in a knee brace, keep it locked in place until your follow-up. We will discuss your weight bearing, range of motion, and lifting restrictions in detail at your first post-operative appointment. Continuous Passive Motion (CPM) Machine If you were prescribed a CPM machine, it will start after your first post- operative appointment, at which time we will give you instructions on the range of motion settings and duration of treatment Physical therapy You will be given a prescription for physical therapy or occupational therapy at your first post-operative appointment. Typically, patients start therapy within 1 week of surgery Wound care and showering We will inspect your wound at your first post-operative visit, and may do a dressing change at that time. Most patients will be in a water-proof dressing that is removed 14 days after surgery. It is normal to see some dried blood on the dressing. Do not remove your dressing, paper strips or sutures yourself unless you are given permission. Showering is allowed the day after surgery. Do not scrub or remove any dressings. The wound should not be submerged underwater (i.e. in a bathtub or pool) until 4 weeks after surgery JOEY stockings If you were given white stockings, these are to be worn at all times except to shower (on both legs) for the first 2 weeks after surgery. Driving You may not drive while taking narcotic pain medication or while in a cast, splint, sling or brace. You, the patient, need to make the final determination about when you are safe to drive, however, the earliest you may consider driving after surgery is below: Hand/Wrist/Elbow Surgery: 3 days Shoulder Surgery: 2 weeks Hip,/Knee/Ankle Surgery: 4 weeks Fracture repair: 6 weeks Return to Work Your return to work depends on what surgery was done and what type of work you do. Please bring any paperwork your employer needs completed to your first post-operative visit. Also, bring a description of your job duties, as this helps us to understand what risks you may face at work. Travel Avoid long distance travel (greater than 1 hour) in airplanes and cars for the first 6 weeks after surgery. If you must travel, you need to have a Doppler ultrasound done before you travel to rule out a blood clot in your legs. Follow-up You should have a follow-up appointment already scheduled 1-2 days after surgery. If not, please contact our office to make this appointment before you leave the hospital. When to call the office It is normal to have swelling and bruising in the limb that was operated on. This will improve with time. It is also normal to have fevers for the first 2 days after surgery. Reasons you should call your doctor include: Uncontrolled pain; Nausea, vomiting, or constipation that does not improve with medication; Fevers over 101.5, chills, sweats; Drainage or bleeding from the wound; Foul odor; Spreading areas of redness; Any other concerns Pending Studies at Discharge: No Stand-Alone Forms: My [facility], Opioid Pain Management Medications and DC Order Prescriptions: New oxycodone 5 mg tablet See Rx Instructions .ROUTE .COMPLEX PRN (Reason: pain) Qty: 30 RF: 0 diclofenac sodium 75 mg tablet,delayed release (DR/EC) 75 mg PO BID PRN (Reason: pain) 30 Days Qty: 60 RF: 1 Continued epinephrine 0.3 mg/0.3 mL auto-injector 0.3 ml IM ONCE PRN (Reason: anaphylaxis) Qty: 1 RF: 0 sodium chloride 0.9 % (flush) syringe IV USEASDIRECTD Qty: 4 RF: 0 nitroglycerin 0.4 mg tablet, sublingual 0.4 mg SL Q5M PRN (Reason: chest pain) Qty: 50 RF: 0 multivitamin Tablet 1 tab PO Q OTHER DAY RF: 0 diltiazem HCl 180 mg Capsule,Extended Release 24 Hr 180 mg PO QPM RF: 0 hydrochlorothiazide 25 mg Tablet 25 mg PO QAM RF: 0 losartan 100 mg Tablet 100 mg PO QAM RF: 0 Fabrazyme 35 mg Recon Soln 85 mg IV UD RF: 0 rosuvastatin 10 mg Tablet 10 mg PO QPM RF: 0 potassium chloride 10 mEq Capsule, Extended Release 20 meq PO DAILY RF: 0 Changed aspirin 81 mg Tablet,Delayed Release (Dr/Ec) 81 mg PO BID Qty: 0 RF: 0 Discharge Orders: Discharge Order (Routine); Ordered 12/24/18 Ordered By: Cody Ascencio/Other Patient Handouts: Surgery Prevent DVT After Admission Data Admit Date/Time: 12/24/18 09:54 Attending Provider: Kyaw Hoyos Admit Provider: Kyaw Hoyos Primary Care Provider: Logan Duncan Other Interventions: Discharge Summary Assessment (RN) Last Done: 12/25/18 08:58 DC Date/Time DO NOT enter until pt leaves facility: 12/25/18 12:30
== END 2018-12-25 12:30 | disposition home health service (06) | DRG 470 ==
LOC: ASU 06:10 → 3E 09:54

== ENCOUNTER 2021-06-07 06:57 | Observation (INO) ==
--- NOTE | 2021-06-04 10:47 | Anesthesiology Consultation ---
Date of Service June 04, 2021 Assessment & Plan (1) Encounter for pre-operative examination: - check BSG am DOS. - awaiting medical pre-op evaluation and clearance. Case discussed with Dr. Romero who advised PCP pre-op clearance regarding hypokalemia, normal saline with 500 cc bolus for fluid orders. Optimization note completed to be faxed to PCP along with additional PAT testing. Pt aware, denied questions or concerns. Message left notifying Marcell at surgeon's office. - hypokalemia: K 3.1. - hyperglycemia: A1c now above 6.5% (6.8%). Labs to be faxed to PCP for continuity of care. - EKG 06/01/2021 Normal sinus rhythm, rate 70 bpm. Right bundle branch block. Left anterior fascicular block. Left ventricular hypertrophy with repolarization abnormality. When compared with ECG of 24-JAN-2021 15:13, No significant change was found. - nephrology office visit 02/06/2021 [place]: "...Continue Fabrazyme as Rx. Prospective monitoring of kidney dysfunction as ordered. Chronic renal insufficiency: KDIGO staging and classification reviewed. Creatinine stable at 2.0 mg/dL. CKD IIIb A3. Risk factor modification reviewed. Rosuvastatin dosing acceptable. Appropriately maintained on ARB. Hypertension: BP controlled. Volume status euvolemic. 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 This is a four month follow up. At his last visit, Fan transitioned care from Dr. Duncan. He presents to the clinic feeling well without acute complaints. Medical history also notable for hypertension, hypercholesterolemia and hyperglycemia. Medical clearance for REKHA completed. Surgery scheduled for the first week of February...Fabry's diagnosis made based on a family history, kidney biopsy, and a very low alpha- galactosidase level. Since diagnosis, he has been treated with Fabrazyme intravenously twice a month administered by home health agency. Fan tolerates infusions without difficulty. He has had no problems with venous access. He has not developed any symptoms of cardiovascular disease related to his disorder....History of hypertension treated with losartan 100 mg daily, hydrochlorothiazide 25 mg daily, and diltiazem ER 180 mg daily. He tolerates those drugs without significant side effect. He has not had any target organ symptoms of hypertension nor has he had any symptoms of cardiovascular, cerebrovascular or peripheral vascular disease. Cardiac stress test in 2017 was unremarkable at 100% MPHR. He also had an echocardiogram done prior to his left total hip replacement in 2019 notable for a low normal ejection fraction of 50- 55%..." - medical clearance 01/23/2021: "Fit for surgery: Medically stable and low cardiac risk for stated surgery." - anesthesia recordleft REKHA 12/24/2018: SAB at L3-L4 2 attempts. - COVID screening: Per copy editor on 06/01/2021: Travel screen negative, no known COVID-19 positive contacts or current COVID-19 related symptoms in past 2 weeks. Surgeon arranging preop COVID testing, scheduled 06/05/2021. Awaiting results. Chart Review Chart Review: Pending: Refer to Additional Notes / Consult section and Patient NOT seen in Pre Admission Testing History Surgery Operation Date: 06/07/21 07:00 Proposed Procedures p Right Total Hip Arthroplasty - Kyaw Hoyos MD Surgery re-scheduled since PAT appt 01/24/2021. Height/Weight Height: 5 ft 6 in Weight: 86.183 kg Allergies Allergy/AdvReac Type Severity Reaction Status Date / Time YANET Inhibitors AdvReac Mild Cough Verified 06/01/21 09:52 Medications Home Medications Medication Instructions Recorded Confirmed Last Taken multivitamin 1 tab PO Q2D 12/11/18 06/01/21 12/21/18 epinephrine 0.3 mg/0.3 mL 0.3 ml IM UD PRN #1 ea 12/17/18 06/01/21 Unknown injection, auto-injector agalsidase beta 35 mg intravenous 85 mg IV .COMPLEX #2 ea 12/23/19 06/01/21 Unknown solution (Fabrazyme) allopurinol 300 mg tablet 300 mg PO QAM #90 tab 05/22/21 06/01/21 Unknown diltiazem HCl 180 mg capsule,24 180 mg PO QPM #90 cap 05/22/21 06/01/21 Unknown hr,extended release hydrochlorothiazide 25 mg tablet 25 mg PO QAM #90 tab 05/22/21 06/01/21 Unknown losartan 100 mg tablet 100 mg PO QAM #90 tab 05/22/21 06/01/21 Unknown rosuvastatin 10 mg tablet 10 mg PO QPM #90 tab 05/22/21 06/01/21 Unknown Past Medical History Medical History Chronic renal insufficiency baseline creatinine 1.7-2.0 (monitored by nephrology); 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 Duncan) Gout History of COVID-19 01/2020 symptoms: severe cough, diarrhea, mild fever. no current symptoms. Hyperlipidemia Hypertension controlled Tubular adenoma of colon Patient denied h/o stroke, seizures, heart attack, heart failure, DM, blood clots or blood transfusions. Exercise / Class Metabolic Activity III < 4 Walking/Shop/Light housework (no CP or SOB, no FOS at home per PAT appt 01/2021) Past Family History Family History Father Family history of diabetes mellitus Mother Family history of diabetes mellitus Past Surgical History Surgical History History of arthroscopic knee surgery History of colonoscopy History of left inguinal hernia repair History of right inguinal hernia repair History of tonsillectomy History of tooth extraction Hx of LASIK Status post left hip replacement 12/24/2018: SAB at L3-L4 2 attempts. Past Anesthesia History No Hx of Anesthesia Complications and No Family Hx of Anesthesia Complications History of PONV No Hx of PONV and No Hx of Motion Sickness Social History Smoking Status: Never smoker Do You Dip or Chew Tobacco: No Hx Alcohol Use: No Hx Substance Use: No substance use type: does not use Review of Systems Patient denied chest pain, shortness of breath, dyspnea on exertion, snoring, witnessed apneas, reflux, fever, chills, cough, wheezing, or palpitations. Physical Exam Vital Signs Vitals 01/2021 PAT appt BP 117/76 P 75 TEMP 97.6 SP02 95% on RA RESP 16 Physical 01/2021 PAT appt Full cervical extension range of motion without pain Full TMJ range of motion TMD 3.5 finger breaths Mallampati Score 2 Dentition: intact, several missing back teeth, front right tooth cap/crown placed earlier this year; denies loose or chipped teeth, implants or bridges Lungs: normal respiratory effort. Clear throughout to auscultation, no ad ventitious breath sounds Cardiac: regular rate and rhythm, no murmurs noted Carotid arteries: negative bruit bilat Extremities: no distal extremity edema Lab Results Anesthesia Preop Results Results Anesthesia Widget: WBC 9.49 K/uL (4.8-10.8) 06/01/21 Hgb 14.9 g/dL (14.0-18.0) 06/01/21 Hct 43.7 % (42-52) 06/01/21 Plt 199 K/uL (130-400) 06/01/21 Na 139 mmol/L (136-145) 06/01/21 K 3.1 mmol/L (3.5-5.1) L 06/01/21 Cl 103 mmol/L (98-107) 06/01/21 CO2 27 mmol/L (21-32) 06/01/21 BUN 38 mg/dl (6-23) H 06/01/21 Creat 2.16 mg/dl (0.6-1.4) H 06/01/21 Glucose Level 112 mg/dl (70-99(Fasting)) H 06/01/21 PT 11.1 Seconds (9.0-12.0) 06/01/21 INR 1.0 (0.9-1.1) 06/01/21 HA1c 6.8 % (4.5-5.6) H 06/01/21 Urine Color Yellow 06/01/21 Urine Appearance Clear (Clear) 06/01/21 Urine pH 5.5 (4.5-7.5) 06/01/21 Urine Specific [place] 1.013 (1.000-1.030) 06/01/21 Urine Protein 3+ (Negative) H 06/01/21 Urine Glucose (UA) Negative (Negative) 06/01/21 Urine Ketones Negative (Negative) 06/01/21 Urine Blood Trace (Negative) H 06/01/21 Urine Nitrite Negative (Negative) 06/01/21 Urine Bilirubin Negative (Negative) 06/01/21 Urine Urobilinogen Negative (Negative) 06/01/21 Urine Leukocyte Esterase Negative (Negative) 06/01/21 Urine WBC (Auto) 1-5 /hpf (0-5) 06/01/21 Urine RBC (Auto) 0-4 /hpf (0-4) 06/01/21 Urine Hyaline Casts (Auto) 1-5 /lpf (0-5) 06/01/21 Urine Epithelial Cells (Auto) 0-5 /lpf (0-5) 06/01/21 Urine Bacteria (Auto) Negative (Negative) 06/01/21 Testing Electrocardiogram Pt saw cardiology 12/21/2018 for abnormal EKG and was recommended to have echo prior to surgery which was subsequently completed and per cardio note addendum 12/22/2018: "Normal LV size and function and wall motion. No significant valvular pathology. Patient is low risk to proceed with surgery, no further cardiac testing/intervention." Echocardiogram Date: 12/21/18 EF 50-55%. Left ventricular size, wall motion and systolic function are normal. Mild cLVH. No significant valvular pathology. Grade I diastolic dysfunction. Stress Test Date: 08/26/16 Negative stress echocardiogram for ischemia at >100% MPHR. METS 12.8. EF 50%. Mildly asynchronous contraction secondary to conduction delay. Mild cLVH. No significant valvular abnormalities.
--- NOTE | 2021-06-04 14:23 | History & Physical Report ---
Date of Service June 04, 2021 Assessment & Plan (1) Osteoarthritis of right hip: Plan: PRE-OP Diagnosis: Right hip osteoarthritis Planned Procedure: Right total hip arthroplasty Plan: Patient is scheduled to undergo this procedure at the [facility] With a 23-hour observation admission on , June 07, [address] Hoyos. Risks and complications of the procedure such as: Infection, bleeding, pain, scarring, nerve blood vessel damage, weakness, wound problems, stiffness, incomplete relief of symptoms, hardware failure, hardware loosening, wear, fracture, tendon or ligament injury, dislocation, leg length inequality, blood clots, embolism, heart attack, stroke and were explained to the patient at his visit today. Consent to perform the procedure was obtained at the patient's visit today. Patient also understands risks of proceeding with surgical invention during the COVID-19 pandemic. Currently he is asymptomatic and understands that he will need to be tested prior to surgery. Patient states That he is scheduled to meet with his primary care provider Dr. Nunez early next week for his medical clearance and we are waiting for the clearance from the faxed back to our office. Patient states that Is contacted by anesthesia earlier this week and they did not require him to come in for evaluation because he had 1 back in January. However, we will need an updated CBC with differential, complete metabolic panel, PT/INR, blood type and screen, urinalysis, urine culture sensitivity, EKG, hemoglobin A1c and a nasal culture for MRSA. During today's visit we reviewed total hip precautions. Patient states he has a walker he will bring with him on the day of the procedure. States that he Is currently followed by [facility] services for his kidney issues and would like to use her physical therapist for his in-home therapy for the first 2 weeks postoperatively. Patient already has Prescriptions for oxycodone, diclofenac sodium, Zofran, Senokot, and Flomax were sent to the patient's pharmacy. We also discussed blood clot prevention using a baby aspirin twice daily for 30 days postoperatively. Patient may also use extra strength Tylenol for additional supplemental pain control following s urgery. Patient verbalized understanding of all information provided during today's visit. He thanked us for the care that he received. If he has questions or concerns should arise prior to her surgery, he will contact clinic. History of Present Illness Chief Complaint: Chief Complaint: Right hip pain and stiffness Primary Care Provider: Homer Manuel DO History of Present Illness (including history relevant to procedure): This 65-year-old male presents the clinic today for his preoperative history and physical. Patient surgery was initially scheduled for January of 2021 following the outpatient joint pathway, however after receiving his lab results showing proteinuria and abnormal kidney functions the patient's surgery was canceled. It was determined that he required an inpatient stay due to this condition. Currently there are beds available to proceed with surgical intervention. Patient recently underwent a left total hip arthroplasty with Dr. Hoyos a few years ago. He reports right hip has been bothering him off and on for years but over the past few months has been getting more chronic pain. Denies trauma. Sometimes just sitting in a car bothers him but any type of lifting or heavier activity flares the pain. He has started to limp at times due to the pain. It does resolve with rest. Most of his pain is on the side of the hip but when the pain is really sharp it is all over. He occasionally gets pain that travels down the outside of the led to the lateral knee, but pain does not ever radiate to the daniel or foot. No numbness or tingling. No prior history of hip injuries. He has tried Tylenol and ibuprofen but has kidney issues so does not take a lot. Does not feel like this helps. Rest helps the most - usually wakes up the next day and feels okay. Review Of Systems: A 12 point review of systems is performed is unremarkable except for those things stated in the HPI and past medical history. Past Medical History: Problems: Preop testing Rotator cuff injury Biceps tendinitis Preop examination Osteoarthritis of left hip Tendinopathy of right gluteus medius Iliotibial band syndrome, right leg Medial meniscus tear Degenerative joint disease of right hip Osteoarthritis of right knee Lumbosacral radiculopathy Trochanteric bursitis of left hip Procedure History Procedure Procedure Date Comments Hernia - b/l CTS (carpal tunnel syndrome )Left total hip arthroplasty - left Allergies and Sensitivities: NKA Social history completely unremarkable Family history: Noncontributory Current Home Meds: (Last Updated 06/01 14:51) agalsidase beta (Fabrazyme 5 mg intravenous injection) 1 mg/kg IV [id number] 85mg every 2 weeks allopurinol (allopurinol 300 mg oral tablet) 300 mg PO Daily amoxicillin (amoxicillin 500 mg oral capsule) 2,000 mg PO As indicated one hour before dental and other procedures as directed cephalexin (Keflex 500 mg oral capsule) 500 mg PO tid post op infection prophylaxis diclofenac (diclofenac sodium 75 mg oral delayed release tablet) 75 mg PO bid PRN: as needed for pain with food dilTIAZem (Dilt-XR 180 mg/24 hours oral capsule, extended release) hydrochlorothiazide losartan (Cozaar) ondansetron (Zofran 4 mg oral tablet) 4 mg PO q8h oxyCODONE (oxyCODONE 5 mg oral tablet) 10 mg PO q4h Post op pain control rosuvastatin (Crestor) senna (Senokot 8.6 mg oral tablet) 8.6 mg PO qhs with plenty of water tamSULOsin (Flomax 0.4 mg oral capsule) 2 tablets night before surgery1 tablet night of surgery Initial Wt: 06/01 91.8 kg 202 lb Allergies Allergy/AdvReac Type Severity Reaction Status Date / Time YANET Inhibitors AdvReac Mild Cough Verified 06/01/21 09:52 Home Medications Medication Instructions Recorded Confirmed Type multivitamin 1 tab PO Q2D 12/11/18 06/01/21 History epinephrine 0.3 mg/0.3 mL 0.3 ml IM UD PRN #1 ea 12/17/18 06/01/21 History injection, auto-injector agalsidase beta 35 mg intravenous 85 mg IV .COMPLEX #2 ea 12/23/19 06/01/21 Rx solution (Fabrazyme) allopurinol 300 mg tablet 300 mg PO QAM #90 tab 05/22/21 06/01/21 Rx diltiazem HCl 180 mg capsule,24 180 mg PO QPM #90 cap 05/22/21 06/01/21 Rx hr,extended release hydrochlorothiazide 25 mg tablet 25 mg PO QAM #90 tab 05/22/21 06/01/21 Rx losartan 100 mg tablet 100 mg PO QAM #90 tab 05/22/21 06/01/21 Rx rosuvastatin 10 mg tablet 10 mg PO QPM #90 tab 05/22/21 06/01/21 Rx Past Med/Surg History Medical History Chronic renal insufficiency baseline creatinine 1.7-2.0 (monitored by nephrology); 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 Duncan) Gout History of COVID-19 01/2020 symptoms: severe cough, diarrhea, mild fever. no current symptoms. Hyperlipidemia Hypertension controlled Tubular adenoma of colon Surgical History History of arthroscopic knee surgery History of colonoscopy History of left inguinal hernia repair History of right inguinal hernia repair History of tonsillectomy History of tooth extraction Hx of LASIK Status post left hip replacement 12/24/2018: SAB at L3-L4 2 attempts. Family History Father Family history of diabetes mellitus Mother Family history of diabetes mellitus Social History Smoking Status: Never smoker Second Hand Exposure: No; Hx Alcohol Use: No Hx Substance Use: No Preferred Language: Surinamese Communication Ability: Effective Repairer Helper Required: No Beliefs That Will Affect Care: None marital status: Current Living Situation: Spouse Feels Safe at Home: Yes Assistive Devices: Glasses Review of Systems All systems reviewed & are unremarkable except as noted in Subjective Physical Exam Physical Exam: Physical Exam: (relevant to the procedure, including heart and lung evaluation) General: Alert and oriented x3 appropriate hygiene Eyes: Pupils are equal reactive to light with accommodation. Extraocular movements are intact Throat: Deferred due to COVID-19 precautions Cardiac: Regular rate and rhythm with no murmurs or gallops appreciated Lungs: Clear to auscultation throughout with no wheezing, rales or rhonchi Abdomen: Obese, nondistended, nontender with NABS Extremities: Right hip; passive flexion to 94 degrees, internal rotation 0 degrees external rotation to 35 degrees. Positive Stinchfield test. Tenderness to palpation in the groin. Positive scour impingement test. Neurovascularly intact in the right lower extremity. Neuro: Cranial nerves II through XII are intact no motor or sensory deficit Skin: Normal appearance no open skin areas or discharge Results & Data ([facility]) Diagnostic Findings Studies (relevant to the procedure): Radiographic imaging: This revealssevere right hip arthritiswith severe joint space narrowing,osteophyte formation,subchondral sclerosis. When compared to prior films, now has [id number] arthritis.
[2021-06-07] MEDS: TRANEXAMIC ACID 1,000 MG **IV Pre-op IV SCH ×2 (06:56→11:00)
[~2021-06-07 06:57] MED LIST changes: +BUPIVACAINE 0.5 % 5 MG/1 ML PF 10ML VIAL ONE; -CEFAZOLIN 2000MG 2,000 MG/15 ML SYR IV SCH; -LR 500ML BOLUS, THEN 15ML/HR IV SCH; -METOCLOPRAMIDE HCL 10 MG TABLET PO SCH; -ROPIVACAINE 0.5% HCL/PF 150 MG, BUPIVACAINE 0.5% MPF 30 ML, EPINEPHrine 0.15 MG, Ketoro... INFIL SCH; -ROPIVACAINE 0.5% HCL/PF 150 MG, BUPIVACAINE 0.5% MPF 30 ML, EPINEPHrine 30MG/30ML (OR U... INSTIL SCH; +ROPIVACAINE 0.5% HCL/PF 150 MG, BUPIVACAINE 0.75% MPF 20 ML, EPINEPHrine 0.15 MG, Ketor... INFIL SCH; -SCOPOLAMINE 1.5 MG TDSY TD SCH; +SODIUM CHLORIDE 0.9% 1000ML IV SCH; +SODIUM CHLORIDE 0.9% 500 ML IV SCH; +Scopolamine 1 MG TDSY TD SCH; -TRAMADOL HCL 50 MG TABLET PO SCH; +TRANEXAMIC ACID 1,000 MG **IV Intra-op IV SCH; -TRANEXAMIC ACID 1,000 MG **IV Pre-op IV SCH; +ceFAZolin 2000MG 2,000 MG/15 ML SYR IV SCH; +traMADol HCL 50 MG TABLET PO SCH
[2021-06-07] MEDS ORDERED: PROPOFOL IV EMULSION 10 MG/ML 20 ML VIAL IV ONE (08:21)
[2021-06-07] MEDS ORDERED: LIDOCAINE 2% 2 ML VIAL/AMP(20MG/ML) INFIL ONE (08:21)
[2021-06-07] MEDS ORDERED: DEXAMETHASONE SOD INJ 4 MG/ML VIAL ONE (08:21)
[2021-06-07] MEDS ORDERED: ONDANSETRON INJ 2 MG/ML 2 ML VIAL ONE (08:21)
[2021-06-07] MEDS ORDERED: MIDAZOLAM HCL 1 MG/ML 2ML VIAL ONE (08:22)
[2021-06-07] MEDS ORDERED: fentaNYL citrate 100 MCG/2 ML VIAL ONE (08:22)
[2021-06-07 08:23] LABS: BUN Creatinine Ratio 17.7 (10-20); Calcium 9.6 mg/dl (8.5-10.1); Creatinine Clr Calc Pharmacy 27.1 ml/min; Est GFR (African American) 25.9 ml/min; Est GFR (Non-African American) 22.4 ml/min; Potassium 2.9 mmol/L (3.5-5.1)
[2021-06-07] MEDS ORDERED: fentaNYL citrate 100 MCG/2 ML VIAL IV PRN (09:24)
[2021-06-07] MEDS ORDERED: ONDANSETRON INJ 2 MG/ML 2 ML VIAL IV PRN ×2 (09:24→13:12)
[2021-06-07] MEDS ORDERED: ePHEDrine sulfate 50 MG/ML AMP IV PRN (09:24)
[2021-06-07] MEDS ORDERED: ATROPINE SULFATE 0.1 MG/ML 10ML SYR IV PRN (09:24)
--- NOTE | 2021-06-07 10:56 | History & Physical Bridge Note ---
Date of Service June 07, 2021 History & Physical Bridge Note I have examined the patient, reviewed the History & Physical and in the interval since the performance of the History & Physical I have noted the following changes of clinical significance: no changes noted
[2021-06-07] MEDS ORDERED: ORTHO JOINT ANESTHETIC ONE (11:02)
--- NOTE | 2021-06-07 12:54 | Operative Report ---
Post Operative Report Pre & Post Diagnosis Operation Date: 06/07/21 09:20 Pre-Op Diagnosis: Right hip Primary Osteoarthritis Post-Op Diagnosis: Right hip Primary Osteoarthritis I identified the patient and participated in the time-out.: Yes Procedure Operation Date: 06/07/21 09:20 Actual Procedures p Right Total Hip Arthroplasty(Right) - Kyaw Hoyos MD Surgeon Kyaw Hoyos MD Epic Radiant Analyst Haile Childress MD and ARCELIA Espinosa PA-C. Estimated Blood Loss 200 Findings Consistent with Post-Op Diagnosis Specimens Right femoral head Anesthesia Type Spinal MAC Complications none Disposition Disposition: Recovery Room Indications 65-year-old male, with right hip arthritis refractory to conservative management. X-rays demonstrate [id number] disease. Is previously undergone a left total hip arthroplasty by myself with a good result. I had a long discussion with him about the risks and benefits of surgery, alternatives to surgery, and expected outcomes. After reviewing all these elected to proceed with surgery. All questions were answered. Informed consent was signed. Description of Procedure Patient was identified in the preoperative holding area and the surgical site, right hip, was marked. A spinal anesthetic was placed, then the patient was brought back to the main operating room, placed in the operating table and moved into the lateral decubitus position. Axillary roll was placed. All bony prominences were padded. Perioperative antibiotics and tranexamic acid 1 gram IV were administered. Operative extremity was prepped and draped in the normal sterile fashion. Prior to incision a multidisciplinary timeout was called. All in the room were in agreement. We began by making an incision for a posterior approach to the hip. We dissected down through subcutaneous tissues to the level of the fascia. The fascia was incised in line with the incision. Charnley bow was placed. The trochanteric bursa was excised. The piriformis and short external rotators were dissected off the posterior aspect of the hip. A box cut was made in the capsule. The femoral head was dislocated. The femoral neck cut was made at our preoperative template. The acetabulum was then exposed. The labrum was sharply excised. Contents of the cotyloid fossa were removed with electrocautery. We then began reaming at a size 8 mm less than our preoperative template. We reamed up by 1 [address] the way up to a size 56 mm cup. This gave us good bleeding cancellus bone circumferentially. The acetabulum was then irrigated out and dried. The real Aurora Gription cup was then impacted down into position with 45 degrees of lateral opening and 25 degrees of anteversion. A single cancellous bone screw was placed up into the ilium. Excellent fixation was obtained. An Altrx polyethylene liner for a 36 mm femoral head was then impacted into the shell. The locking mechanism was checked to ensure that it had engaged which it had. Next we turned our attention to the femur. The lateral neck was removed with a box osteotome. Intramedullary guide was used followed by the lateralizing reamer. We then reamed up to a size 3 Franklin stem. We then broached all the way up to a size 3. He was a size 4 high offset with a +1.5 head on his other side, so we began trialing with a high offset neck and a +5 head size we had a size 3 stem. Hip was reduced. Leg lengths were symmetric. The hip was stable in extension and external rotation, and stable in the sleeper position. At 90 degrees of hip flexion the hip could be internally rotated 60 degrees before levering out of the cup. I was very happy with the stability exam. Therefore the hip was dislocated and the femoral trial was removed. The femoral canal was irrigated and dried. The real size 3 high offset Franklin femoral stem was opened up. This was impacted down into position. It sat at the same level as the femoral trial. Therefore the 36 mm ceramic femoral head with a +5 mm offset was opened up and gently impacted down onto the trunnion. The hip was atraumatically reduced. Another 1 gram of IV tranexamic acid was started prior to closure. The wound was irrigated out with sterile Betadine solution. The periarticular injection cocktail was then placed. The short external rotators, piriformis, and posterior capsule were repaired through drill holes in the greater trochanter using #2 Vicryl. The fascia was run with a looped #1 PDS. The subcutaneous layer was closed with #1 PDS. The dermal layer was closed with 2-0 Vicryl. Zip line was used for the skin followed by a Silverlon dressing. A compressive dressing was then placed. The patient was then rolled supine. Leg lengths were rechecked and were symmetric. An abduction pillow was placed. Sedation was lifted and the patient was transferred to recovery room in stable condition. Summary of implants: Depuy Aurora Gription Acetabular Shell Sector Cup, 56 mm outer diameter Aurora Cancellous bone screw, 6.5 x 35 mm Aurora Altrx Polyethylene Acetabular Liner, Neutral, with a 36 mm inner diameter DePuy Franklin Femoral stem with [place], 12/14 taper, size 3 high offset 36 mm ceramic femoral head with +5 offset Postoperative course: Patient will be admitted to the hospital from the recovery room. Patient will be weightbearing as tolerated with posterior hip precautions. Aspirin for DVT prophylaxis I attest to the content of the Intraoperative Record and any orders documented therein. Any exceptions are noted below.
[2021-06-07] MEDS ORDERED: bisacodyL 10 MG SUPP PR PRN (13:12)
[2021-06-07] MEDS ORDERED: TAMSULOSIN HCL 0.4 MG CAP PO PRN (13:12)
[2021-06-07] MEDS ORDERED: oxyCODONE HCL IR 5 MG TAB (IMMEDIATE RELEASE) PO PRN (13:12)
[2021-06-07] MEDS ORDERED: METOCLOPRAMIDE HCL INJ 5 MG/ML 2 ML VIAL IV PRN (13:12)
[2021-06-07] MEDS ORDERED: NALOXONE HCL 0.4 MG/1 ML VIAL/CARP IV PRN (13:12)
[2021-06-07] MEDS ORDERED: ALUMINUM/MAGNESIUM SUSP 30 ML UDC PO PRN (13:12)
[2021-06-07] MEDS ORDERED: MAGNESIUM HYDROXIDE SUSP 30 ML UDC PO PRN (13:12)
[2021-06-07] MEDS ORDERED: diphenhydrAMINE 50 MG/ML VIAL IV PRN (13:12)
--- NOTE | 2021-06-07 13:12 | Operative Report ---
Post Operative Report Pre & Post Diagnosis Operation Date: 06/07/21 09:20 Pre-Op Diagnosis: Unilateral Primary Osteoarthritis Post-Op Diagnosis: Unilateral Primary Osteoarthritis I identified the patient and participated in the time-out.: Yes Procedure Operation Date: 06/07/21 09:20 Actual Procedures p Right Total Hip Arthroplasty(Right) - Kyaw Hoyos MD Surgeon Kyaw Hoyos MD Sewer Haile Childress MD and ARCELIA Espinosa PA-C. Estimated Blood Loss 200 Findings Consistent with Post-Op Diagnosis Specimens femoral head Description of Procedure I was present during the entire case assisting with positioning, prepping, draping, wound retraction, wound closure, dressing and abduction pillow placement. Fellow also present. I served as an extra set of hands during the case. Please see Dr. Hoyos procedure note for specifics of the case. I attest to the content of the Intraoperative Record and any orders documented therein. Any exceptions are noted below.
--- NOTE | 2021-06-07 13:13 | Operative Report ---
Post Operative Report Pre & Post Diagnosis Operation Date: 06/07/21 09:20 Pre-Op Diagnosis: Unilateral Primary Osteoarthritis Post-Op Diagnosis: Unilateral Primary Osteoarthritis I identified the patient and participated in the time-out.: Yes Procedure Operation Date: 06/07/21 09:20 Actual Procedures p Right Total Hip Arthroplasty(Right) - Kyaw Hoyos MD Surgeon Haile Childress MD, ARCELIA DUKE Sign Designer Haile Childress MD and ARCELIA Espinosa PA-C. Estimated Blood Loss 200 Findings Consistent with Post-Op Diagnosis Consistent with post op diagnosis. Specimens No specimens Description of Procedure I participated in prepping dressing and assisted Dr. Hoyos during the procedure. Please See Dr. Hoyos note. I attest to the content of the Intraoperative Record and any orders documented therein. Any exceptions are noted below. Supervising Physician Co-Signing Physician Notes Dr. Hoyos
[2021-06-07] MEDS ORDERED: [UNRECOGNIZED DRUG - OTHER] IV SCH (13:15)
[2021-06-07] MEDS ORDERED: EPINEPHrine ADULT AUTO-INJECT 0.3 MG SYR IM PRN (13:15)
[2021-06-07] MEDS ORDERED: KETOROLAC TROMETHAMINE 15 MG/ML VIAL IV SCH (13:15)
[2021-06-07] MEDS ORDERED: NON-FORMULARY MEDICATION (Multivitamin Tablet) PO SCH (13:15)
--- NOTE | 2021-06-07 13:28 | Anesthesiology Progress Note ---
Date of Service June 07, 2021 Anesthesia Post Procedure Vital Signs Vital Signs: Temp Pulse Resp BP Pulse Ox 06/07/21 07:36 36.7 C 88 20 113/76 95 Pain Intensity Right Hip: Pain Intensity: 1 Transfer of Care Handoff Completed per policy Notes Mental Status: alert / awake / arousable Patient Amnestic to Procedure: Yes Nausea / Vomiting: adequately controlled Pain: adequately controlled Airway Patency, RR, SpO2: stable & adequate BP & HR: stable & adequate Hydration State: stable & adequate Neuraxial Anesthesia: was administered and sensory block is resolving Anesthetic Complications: no major complications apparent and Pt Satisfied with anesthetic care
--- NOTE | 2021-06-07 13:41 | XRay Report ---
XR pelvis 1-2V routine HISTORY: 65 years-old Male Post Surgical right hip total joint arthroplasty COMPARISON: Pelvis radiograph 01/24/2021 TECHNIQUE: Portable supine AP view of the pelvis FINDINGS: Unchanged left hip total joint arthroplasty with surgical clips project over the left hemipelvis. Int erval right hip total joint arthroplasty which appears to be in satisfactory positioning. Expected po stoperative soft tissue swelling with deep tissue air. No acute fracture or unexpected opaque foreign body. IMPRESSION: Right hip total joint arthroplasty with expected postoperative changes. ACT 112: Negative or not required by law. The above report was generated using voice recognition software. It may contain grammatical, syntax o r spelling errors. Electronically signed by: Kar Aquino M.D. 06/07/2021 1:39 PM
[2021-06-07] MEDS: ACETAMINOPHEN 500 MG TAB PO SCH ×2 (15:16→20:38)
[2021-06-07] MEDS: SODIUM CHLORIDE 0.9% 1000ML 1,000 ML IV SCH (15:30)
[2021-06-07] MEDS: Scopolamine CHECK PATCH PLACEMENT SCH (15:39)
[2021-06-07] MEDS ORDERED: KETOROLAC TROMETHAMINE 15 MG/ML VIAL IV PRN (15:42)
[2021-06-07] MEDS ORDERED: TRANEXAMIC ACID / 0.7% NACL 1,000 MG/100 ML BAG IV SCH (19:15)
[2021-06-07] MEDS: DOCUSATE SODIUM 100 MG CAP PO SCH (20:38)
[2021-06-07] MEDS: ASPIRIN 81 MG ECTAB PO SCH (20:39)
[2021-06-07] MEDS: ceFAZolin 2000MG 2,000 MG/15 ML SYR IV SCH (20:39)
[2021-06-07] MEDS ORDERED: dilTIAZem ER 180 MG CAPCR PO SCH (21:00)
[2021-06-07] MEDS ORDERED: SENNA 8.6 MG TAB PO SCH (21:00)
[2021-06-07] MEDS ORDERED: CeleBREX 200 MG CAP PO SCH (21:00)
[2021-06-07] MEDS ORDERED: ROSUVASTATIN CALCIUM 10 MG TAB PO SCH (21:00)
[2021-06-08] MEDS: Scopolamine CHECK PATCH PLACEMENT SCH ×2 (00:11→07:49)
[2021-06-08] MEDS: SODIUM CHLORIDE 0.9% 1000ML 1,000 ML IV SCH (02:03)
[2021-06-08] MEDS: ACETAMINOPHEN 500 MG TAB PO SCH (05:06)
[2021-06-08] MEDS: ceFAZolin 2000MG 2,000 MG/15 ML SYR IV SCH (05:06)
[2021-06-08 06:42] LABS: Hemoglobin 12.3 g/dL (14.0-18.0); Immature Granulocytes # (auto) 0.06 K/uL (0.00-0.02); Immature Granulocytes % (auto) 0.3 %; Lymphocytes # (auto) 0.72 K/uL (1.2-3.4); Lymphocytes % (auto) 3.8 %; Mean Corpuscular Hemoglobin 30.3 pg (25-34); Mean Corpuscular Hgb Conc 33.2 g/dL (32-36); Mean Corpuscular Volume 91.1 fL (80-100); Mean Platelet Volume 11.4 fL (7.4-10.4); Monocytes # (auto) 0.81 K/uL (0.11-0.59); Monocytes % (auto) 4.3 %; Neutrophils # (auto) 17.42 K/uL (1.4-6.5); Neutrophils % (auto) 91.6 %; Platelet Count 172 K/uL (130-400); RDW Coefficient of Variation 13.5 % (11.5-14.5); RDW Standard Deviation 44.5 fL (36.4-46.3); Red Blood Count 4.06 M/uL (4.7-6.1); White Blood Count 19.01 K/uL (4.8-10.8)
[2021-06-08 07:54] LABS: Calcium 8.5 mg/dl (8.5-10.1); Creatinine Clr Calc Pharmacy 22.8 ml/min; Est GFR (African American) 21.1 ml/min; Est GFR (Non-African American) 18.2 ml/min; Potassium 3.1 mmol/L (3.5-5.1)
[2021-06-08] MEDS: DOCUSATE SODIUM 100 MG CAP PO SCH (08:43)
[2021-06-08] MEDS: ASPIRIN 81 MG ECTAB PO SCH (08:43)
[2021-06-08] MEDS ORDERED: allopurinoL 300 MG TAB PO SCH (09:00)
[2021-06-08] MEDS ORDERED: hydroCHLOROthiazide 25 MG TAB PO SCH (09:00)
[2021-06-08] MEDS ORDERED: MULTIVITAMIN TAB PO SCH (09:00)
[2021-06-08] MEDS ORDERED: LOSARTAN POTASSIUM 50 MG TAB PO SCH (09:00)
--- NOTE | 2021-06-08 09:36 | Orthopedic Progress Note ---
Date of Service June 08, 2021 Assessment & Plan (1) S/P total hip arthroplasty: Plan: Reviewed total hip precautions Weightbearing as tolerated with walker assistance DVT prophylaxis with JOEY stockings and 81 mg aspirin twice daily Ice with easy wrap Pain control with p.o. medications PT/OT Keep Silverlon dressing in place Abduction pillow use x6 weeks postoperatively Plan on discharge home today with in-home physical therapy for the first 2 weeks postoperatively. Follow-up with [facility] orthopedics as previously scheduled. With questions contact the clinic at [phone] Admission and Anticipated Discharge Date Admission Date: June 07, 2021 Subjective This 65-year-old male is day 1 status post right total hip arthroplasty. States he is doing fairly well today. He states his pain is well controlled with p.o. pain medication. States that he did have a difficulty sleeping last night. He states that he was up a few times because he felt like he had to move his bowels but only passed gas and was able to void. Patient hopes to be able to be discharged home later today. Currently he denies chest pain, shortness of breat h, fever, chills, sweats, lethargy, numbness or tingling in his right lower extremity or weakness. Patient also denies nausea vomiting or diarrhea Review of Systems Review of Systems: All systems reviewed & are unremarkable except as noted in Subjective Physical Exam Physical Exam: Right hip: Outer foam tape and 4 x 4's were removed. Silverlon is in place intact and clean. Patient was able to actively perform a straight leg raise test. He was able to actively dorsi and plantarflex foot. Knee range of motion from 0 to 80 degrees. Logroll test was negative. Patient did experience some slight twinges of pain with light passive internal and external hip rotation. Quad strength was 2 out of 5. Patient was neurovascularly intact in the right lower extremity. Results & Data ([facility]) Vital Signs (Past 12 Hours) Vital Signs Temp Pulse Pulse Resp BP Pulse Ox 06/08/21 07:37 36.5 C 75 18 98/60 L 94 06/08/21 03:31 36.4 C L 82 18 101/66 92 06/07/21 22:23 36.6 C 99 H 18 91/55 L 92 Diagnostic Findings Laboratory Results WBC 19.01 K/uL (4.8-10.8) H 06/08/21 06:06 RBC 4.06 M/uL (4.7-6.1) L 06/08/21 06:06 Hgb 12.3 g/dL (14.0-18.0) L 06/08/21 06:06 Hct 37.0 % (42-52) L 06/08/21 06:06 MCV 91.1 fL (80-100) 06/08/21 06:06 MCH 30.3 pg (25-34) 06/08/21 06:06 MCHC 33.2 g/dL (32-36) 06/08/21 06:06 RDW Std Deviation 44.5 fL (36.4-46.3) 06/08/21 06:06 RDW Coeff of Carisa 13.5 % (11.5-14.5) 06/08/21 06:06 Plt Count 172 K/uL (130-400) 06/08/21 06:06 MPV 11.4 fL (7.4-10.4) H 06/08/21 06:06 Immature Gran % (Auto) 0.3 % 06/08/21 06:06 Neut % (Auto) 91.6 % 06/08/21 06:06 Lymph % (Auto) 3.8 % 06/08/21 06:06 [place] % (Auto) 4.3 % 06/08/21 06:06 Eos % (Auto) 0.0 % 06/08/21 06:06 Baso % (Auto) 0.0 % 06/08/21 06:06 Neut # (Auto) 17.42 K/uL (1.4-6.5) H 06/08/21 06:06 Lymph # (Auto) 0.72 K/uL (1.2-3.4) L 06/08/21 06:06 [place] # (Auto) 0.81 K/uL (0.11-0.59) H 06/08/21 06:06 Eos # (Auto) 0.00 K/uL (0-0.5) 06/08/21 06:06 Baso # (Auto) 0.00 K/uL (0-0.2) 06/08/21 06:06 Immature Gran # (Auto) 0.06 K/uL (0.00-0.02) H 06/08/21 06:06 Sodium 136 mmol/L (136-145) 06/08/21 06:06 Potassium 3.1 mmol/L (3.5-5.1) L 06/08/21 06:06 Chloride 103 mmol/L (98-107) 06/08/21 06:06 Carbon Dioxide 19 mmol/L (21-32) L 06/08/21 06:06 Anion Gap 14 (3-11) H 06/08/21 06:06 BUN 57 mg/dl (6-23) H 06/08/21 06:06 Creatinine 3.36 mg/dl (0.6-1.4) H D 06/08/21 06:06 Est Cr Clr Drug Dosing 22.8 ml/min 06/08/21 06:06 Est GFR ( Amer) 21.1 ml/min 06/08/21 06:06 Est GFR (Non-Af Amer) 18.2 ml/min 06/08/21 06:06 BUN/Creatinine Ratio 17.0 (10-20) 06/08/21 06:06 Glucose 196 mg/dl (70-99(Fasting)) H 06/08/21 06:06 POC Glucose 183 mg/dl (70-99) H 06/07/21 13:17 Calcium 8.5 mg/dl (8.5-10.1) 06/08/21 06:06 SARS-CoV-2, RNA, NAAT NEGATIVE (NEGATIVE) 06/07/21 07:34 Blood Type A Positive 06/07/21 07:24 Antibody Screen NEGATIVE 06/07/21 07:24 Impressions Pelvis X-Ray 06/07/21 13:12 XR pelvis 1-2V routine HISTORY: 65 years-old Male Post Surgical right hip total joint arthroplasty COMPARISON: Pelvis radiograph 01/24/2021 TECHNIQUE: Portable supine AP view of the pelvis FINDINGS: Unchanged left hip total joint arthroplasty with surgical clips project over the left hemipelvis. Interval right hip total joint arthroplasty which appears to be in satisfactory positioning. Expected postoperative soft tissue swelling with deep tissue air. No acute fracture or unexpected opaque foreign body. IMPRESSION: Right hip total joint arthroplasty with expected postoperative changes. ACT 112: Negative or not required by law. The above report was generated using voice recognition software. It may contain grammatical, syntax or spelling errors. Electronically signed by: Kar Aquino M.D. 06/07/2021 1:39 PM
--- NOTE | 2021-06-08 09:36 | Discharge Summary ---
Date of Service June 08, 2021 Admission HPI Per Admitting Provider History of Present Illness (including history relevant to procedure): This 65-year-old male presents the clinic today for his preoperative history and physical. Patient surgery was initially scheduled for January of 2021 following the outpatient joint pathway, however after receiving his lab results showing proteinuria and abnormal kidney functions the patient's surgery was canceled. It was determined that he required an inpatient stay due to this condition. Currently there are beds available to proceed with surgical intervention. Patient recently underwent a left total hip arthroplasty with Dr. Hoyos a few years ago. He reports right hip has been bothering him off and on for years but over the past few months has been getting more chronic pain. Denies trauma. Sometimes just sitting in a car bothers him but any type of lifting or heavier activity flares the pain. He has started to limp at times due to the pain. It does resolve with rest. Most of his pain is on the side of the hip but when the pain is really sharp it is all over. He occasionally gets pain that travels down the outside of the led to the lateral knee, but pain does not ever radiate to the daniel or foot. No numbness or tingling. No prior history of hip injuries. He has tried Tylenol and ibuprofen but has kidney issues so does not take a lot. Does not feel like this helps. Rest helps the most - usually wakes up the next day and feels okay. Review Of Systems: A 12 point review of systems is performed is unremarkable except for those things stated in the HPI and past medical history. Past Medical History: Problems: Preop testing Rotator cuff injury Biceps tendinitis Preop examination Osteoarthritis of left hip Tendinopathy of right gluteus medius Iliotibial band syndrome, right leg Medial meniscus tear Degenerative joint disease of right hip Osteoarthritis of right knee Lumbosacral radiculopathy Trochanteric bursitis of left hip Procedure History Procedure Procedure Date Comments Hernia - b/l CTS (carpal tunnel syndrome )Left total hip arthroplasty - left Allergies and Sensitivities: NKA Social history completely unremarkable Family history: Noncontributory Current Home Meds: (Last Updated 06/01 14:51) agalsidase beta (Fabrazyme 5 mg intravenous injection) 1 mg/kg IV [id number] 85mg every 2 weeks allopurinol (allopurinol 300 mg oral tablet) 300 mg PO Daily amoxicillin (amoxicillin 500 mg oral capsule) 2,000 mg PO As indicated one hour before dental and other procedures as directed cephalexin (Keflex 500 mg oral capsule) 500 mg PO tid post op infection prophylaxis diclofenac (diclofenac sodium 75 mg oral delayed release tablet) 75 mg PO bid PRN: as needed for pain with food dilTIAZem (Dilt-XR 180 mg/24 hours oral capsule, extended release) hydrochlorothiazide losartan (Cozaar) ondansetron (Zofran 4 mg oral tablet) 4 mg PO q8h oxyCODONE (oxyCODONE 5 mg oral tablet) 10 mg PO q4h Post op pain control rosuvastatin (Crestor) senna (Senokot 8.6 mg oral tablet) 8.6 mg PO qhs with plenty of water tamSULOsin (Flomax 0.4 mg oral capsule) 2 tablets night before surgery1 tablet night of surgery Initial Wt: 06/01 91.8 kg 202 lb Admission Exam Per Admitting Provider Physical Exam: (relevant to the procedure, including heart and lung evaluation) General: Alert and oriented x3 appropriate hygiene Eyes: Pupils are equal reactive to light with accommodation. Extraocular movements are intact Throat: Deferred due to COVID-19 precautions Cardiac: Regular rate and rhythm with no murmurs or gallops appreciated Lungs: Clear to auscultation throughout with no wheezing, rales or rhonchi Abdomen: Obese, nondistended, nontender with NABS Extremities: Right hip; passive flexion to 94 degrees, internal rotation 0 degrees external rotation to 35 degrees. Positive Stinchfield test. Tenderness to palpation in the groin. Positive scour impingement test. Neurovascularly intact in the right lower extremity. Neuro: Cranial nerves II through XII are intact no motor or sensory deficit Skin: Normal appearance no open skin areas or discharge Principal Diagnosis Right hip osteoarthritis Discharge Exam Right hip: Outer foam tape and 4 x 4's were removed. Silverlon is in place intact and clean. Patient was able to actively perform a straight leg raise test. He was able to actively dorsi and plantarflex foot. Knee range of motion from 0 to 80 degrees. Logroll test was negative. Patient did experience some slight twinges of pain with light passive internal and external hip rotation. Quad strength was 2 out of 5. Patient was neurovascularly intact in the right lower extremity. Discharge Data Allergies Allergy/AdvReac Type Severity Reaction Status Date / Time YANET Inhibitors AdvReac Mild Cough Verified 06/07/21 07:29 Procedures Performed Operation Date: 06/07/21 09:20 Actual Procedures p Right Total Hip Arthroplasty(Right) - Kyaw Hoyos MD Hospital Course (1) S/P total hip arthroplasty: Patient had an uneventful overnight stay. He is doing very well this morning. He is getting set up to do physical therapy. If he does well we will plan on discharge home today around lunchtime. Patient is scheduled to do his home health PT with [facility] for the first 2 weeks postoperatively. Reviewed total hip precautions Weightbearing as tolerated with walker assistance DVT prophylaxis with JOEY stockings and 81 mg aspirin twice daily Ice with easy wrap Pain control with p.o. medications PT/OT Keep Silverlon dressing in place Abduction pillow use x6 weeks postoperatively Plan on discharge home today with in-home physical therapy for the first 2 weeks postoperatively. Follow-up with [facility] orthopedics as previously scheduled. With questions contact the clinic at [phone] Total Time Total Time Spent Total Time Spent (In Minutes): 20 minutes Discharge Plan Discharge Items Patient Disposition: Home - Home Health Services Reason For Visit: Unilateral Primary Osteoarthritis Discharge Diagnosis: Right hip osteoarthritis Activity: As commented below Bathing: Keep incision dry Bathing Comment: May shower tomorrow Sexual Activity: Wait until after follow-up appointment Exercise/Sports: Wait until after follow-up appointment Driving/Machine Use: No driving until cleared by treatment specialist Weightbearing: Right weightbearing Weightbearing Comment: As tolerated with walker assistance Non-emergency contact: Surgeon Call non-emergency contact if: you have any medication questions, your pain is not controlled, your temperature is above 101.5, your wound has increased drainage and your wound pain has increased Follow-up/Referrals: Homer Manuel DO [Primary Care Provider] - Diet: Regular Addtl Attending Provider Instructions: Post-operative Instructions Dear Patient and Family/Friends, Before you are discharged from the hospital, it is important to know what to expect when you get home after surgery. To that end, we have created this sheet of discharge instructions which covers many commonly asked questions. Make sure you go through this sheet in its entirety with your nurse before you are discharged. Please note that we will go over the specifics of your surgery and recovery when you return for your first post-operative visit. Sincerely, Dr. Hoyos Medications 1. Oxycodone 5 mg: Take 1-2 tabs every 4-6 hours as needed for pain. A prescription for this medication will be sent to your pharmacy. 2. Aspirin 81 mg: Take 1 tab twice daily for the first 3 days postoperatively for blood clot prevention. Please purchase. 3. Extra strength Tylenol 500 mg: Take 2 tabs every 6-8 hours as needed for additional pain relief. Please purchase. Do not use the previously prescribed diclofenac sodium due to your kidney issues. Please discard this medication. Pain Expect to be in a fair amount of pain after surgery. Remember, our goal is not to eliminate your pain, but to make it tolerable. It is a good idea to stay ahead of your pain by taking the medications you were prescribed once you get home. Typically, the pain starts improving 3-7 days after surgery. You should start weaning off the narcotic pain medication (oxycodone, hydrocodone, hydromorphone, morphine) as soon as your pain improves. Please call our office if your pain is not adequately controlled. Ice Ice your operative site at least 5 times a day for 15-30 minutes at a time. Make sure you have a thin cloth between the ice or cooling unit and your skin to prevent keith bite. This is especially important if you received a nerve block. Continue icing your operative site for the first 5-7 days after surgery, then as needed. Diet/Nausea/Vomiting Start by drinking clear liquids and eating crackers. If you can tolerate this, then you may resume your normal diet. If you feel nauseated or vomit, take Zofran/ondansetron (if prescribed). Please call our office if you have intractable nausea or vomiting, or, if after hours, you may go to the Emergency Room for help. Constipation Constipation is a common side effect of narcotic pain medication. If you have not had a bowel movement within 2 days after surgery, we recommend purchasing an over the counter laxative such as Milk of Magnesia, Dulcolax, or Miralax from a local pharmacy, and taking it as instructed. Call our clinic if any questions. Nerve block The anesthesia team sometimes places a nerve block to help with post-operative pain control. This results in significant numbness and inability to move the extremity. The nerve block usually wears off in 8-12 hours, but sometimes can last up to 24 hours. Please call our office if you are still unable to move your extremity after 24 hours, unless you received a pain pump to take home. Nerve blocks typically wear off quickly, so start taking pain medication as soon as you start feeling soreness near your surgical site. Weight bearing and Range of Motion. Do not bear any weight through your operative extremity immediately after surgery. If you had upper extremity surgery, do not lift anything with that arm. If you are in a knee brace, keep it locked in place until your follow-up. We will discuss your weight bearing, range of motion, and lifting restrictions in detail at your first post-operative appointment. Continuous Passive Motion (CPM) Machine If you were prescribed a CPM machine, it will start after your first post- operative appointment, at which time we will give you instructions on the range of motion settings and duration of treatment Physical therapy You will be given a prescription for physical therapy or occupational therapy at your first post-operative appointment. Typically, patients start therapy within 1 week of surgery Wound care and showering We will inspect your wound at your first post-operative visit, and may do a dressing change at that time. Most patients will be in a water-proof dressing that is removed 14 days after surgery. It is normal to see some dried blood on the dressing. Do not remove your dressing, paper strips or sutures yourself unless you are given permission. Showering is allowed the day after surgery. Do not scrub or remove any dressings. The wound should not be submerged underwater (i.e. in a bathtub or pool) until 4 weeks after surgery JOEY stockings If you were given white stockings, these are to be worn at all times except to shower (on both legs) for the first 2 weeks after surgery. Driving You may not drive while taking narcotic pain medication or while in a cast, splint, sling or brace. You, the patient, need to make the final determination about when you are safe to drive, however, the earliest you may consider driving after surgery is below: Hand/Wrist/Elbow Surgery: 3 days Shoulder Surgery: 2 weeks Hip,/Knee/Ankle Surgery: 4 weeks Fracture repair: 6 weeks Return to Work Your return to work depends on what surgery was done and what type of work you do. Please bring any paperwork your employer needs completed to your first post-operative visit. Also, bring a description of your job duties, as this helps us to understand what risks you may face at work. Travel Avoid long distance travel (greater than 1 hour) in airplanes and cars for the first 6 weeks after surgery. If you must travel, you need to have a Doppler ultrasound done before you travel to rule out a blood clot in your legs. Follow-up You should have a follow-up appointment already scheduled 1-2 days after surgery. If not, please contact our office to make this appointment before you leave the hospital. When to call the office It is normal to have swelling and bruising in the limb that was operated on. Th is will improve with time. It is also normal to have fevers for the first 2 days after surgery. Reasons you should call your doctor include: Uncontrolled pain; Nausea, vomiting, or constipation that does not improve with medication; Fevers over 101.5, chills, sweats; Drainage or bleeding from the wound; Foul odor; Spreading areas of redness; Any other concerns Pending Studies at Discharge: No Stand-Alone Forms: [facility] amprice, Smoking Cessation Medications and DC Order Prescriptions: New oxycodone 5 mg tablet 5 mg PO Q4H MDD Ongoing prescription Qty: 20 RF: 0 Continued Fabrazyme 35 mg recon soln 85 mg IV .COMPLEX Qty: 2 RF: 11 allopurinol 300 mg tablet 300 mg PO QAM Qty: 90 RF: 3 diltiazem HCl 180 mg capsule,extended release 24 hr 180 mg PO QPM Qty: 90 RF: 3 hydrochlorothiazide 25 mg tablet 25 mg PO QAM Qty: 90 RF: 3 losartan 100 mg tablet 100 mg PO QAM Qty: 90 RF: 3 rosuvastatin 10 mg tablet 10 mg PO QPM Qty: 90 RF: 3 epinephrine 0.3 mg/0.3 mL auto-injector 0.3 ml IM UD PRN (Reason: anaphylaxis) Qty: 1 RF: 0 multivitamin Tablet 1 tab PO Q2D RF: 0 Discharge Orders: Discharge Order (Routine); Ordered 06/08/21 Ordered By: Cody Espinosa Admission Data Admit Date/Time: 06/07/21 13:12 Attending Provider: Kyaw Hoyos Admit Provider: Kyaw Hoyos Primary Care Provider: Homer Manuel
== END 2021-06-08 11:48 | disposition home health service (06) ==
LOC: PACUINP 06:57 → ASU 06:57 → 3E 15:14